=== PATIENT | male | born 1945 | race Caucasian/White ===

== ENCOUNTER 2018-06-07 09:51 | Emergency (ER) | payer MEDICARE ==
[~2018-06-07] VITALS: Ht 182.9 cm; Wt 95.2 kg
[~2018-06-07 09:51] MED LIST: ASPI81EC; Apple Cider Vi500 MG PO; CENTRUM SILVER1 EAC1 PO; CLOP75 PO; FISH1000 PO; GABA100 PO; MAGNESIUM100 MG PO; PARO10 PO; PRED20 PO; Saw Palmetto450 MG PO
[2018-06-07 11:09] LABS: BASOPHILS ABSOLUTE AUTO 0.03 K/mm3 (0.00-0.23); BASOPHILS PERCENT AUTO 0 % (0-2); EOSINOPHILS ABSOLUTE AUTO 0.08 K/mm3 (0.00-0.68); EOSINOPHILS PERCENT AUTO 1 % (0-6); Hematocrit 42.3 % (37.0-53.0); Hemoglobin 13.5 g/dL (13.5-17.5); IMMATURE GRAN ABSOLUTE AUTO 0.03 K/mm3 (0.00-0.10); IMMATURE GRAN PERCENT AUTO 0 % (0-1); LYMPHOCYTES ABSOLUTE AUTO 1.12 K/mm3 (0.84-5.20); LYMPHOCYTES PERCENT AUTO 9 % (21-46); MONOCYTES ABSOLUTE AUTO 1.13 K/mm3 (0.16-1.47); MONOCYTES PERCENT AUTO 9 % (4-13); Mean Corpuscular HGB 28.1 pg (26.0-34.0); Mean Corpuscular HGB Conc 31.9 g/dL (31.5-36.5); Mean Corpuscular Volume 88 fL (80-100); Mean Platelet Volume 9.7 fL (9.1-12.4); NEUTROPHILS PERCENT AUTO 81 % (41-73); Platelet Count 259 K/mm3 (150-400); RDW Coefficient Variation 13.1 % (11.7-14.2); RDW Standard Deviation 41.8 fL (35.1-46.3); White Blood Cell Count 12.39 K/mm3 (4.00-11.30)
[2018-06-07 11:26] LABS: Alanine Aminotransfer (ALT/SGP 35 U/L (12-78); Albumin, Blood 3.6 g/dL (3.4-5.0); Alk Phos 84 U/L (50-136); Anion Gap 8 mmol/L (6-16); Aspartate Aminotrans (AST/SGOT 18 U/L (12-37); Bilirubin, Total 0.6 mg/dL (0.1-1.0); Blood Urea Nitrogen 11 mg/dL (8-24); Bun/Creatinine Ratio 14.4 (12.0-20.0); CO2, Blood 26 mmol/L (21-32); Calcium, Blood 8.4 mg/dL (8.5-10.1); Chloride, Blood 104 mmol/L (98-108); Creatinine, Blood 0.77 mg/dL (0.60-1.20); Globulin, Blood 3.7 g/dL (2.2-4.0); Glomerular Filtration Rate >60 (60-); Glucose, Blood 119 mg/dL (70-99); Potassium, Blood 4.1 mmol/L (3.5-5.5); Sodium, Blood 138 mmol/L (136-145); Total Protein, Blood 7.3 g/dL (6.4-8.2); Troponin I <0.015 ng/mL (0.000-0.040)
[2018-06-07] MEDS ORDERED: SUCR1 PO (12:31)
[2018-06-07] MEDS ORDERED: Pepcid40 MG PO (12:31)
== END 2018-06-07 12:55 | disposition home or self-care (01) ==
LOC: ER 09:51
PROVIDERS: Emergency Medicine
DX: K20.9 Esophagitis, unspecified (principal); R68.84 Jaw pain; R07.9 Chest pain, unspecified; Z91.048 Other nonmedicinal substance allergy status; Z88.8 Allergy status to other drugs, medicaments and biological substances; Z79.899 Other long term (current) drug therapy; Z79.82 Long term (current) use of aspirin; F17.200 Nicotine dependence, unspecified, uncomplicated
CPT/HCPCS: 36415; 80053; 84484; 85025; 93005; 93010; 96374; 99285-25

== ENCOUNTER 2019-02-14 14:06 | Inpatient (IN) | payer MEDICARE ==
[~2019-02-14] VITALS: Ht 182.9 cm; Wt 99.1 kg
[~2019-02-14 14:06] MED LIST changes: +ASPI81CH; -ASPI81EC; +Pepcid40 MG PO; +SUCR1 PO
[2019-02-14 15:21] LABS: BASOPHILS ABSOLUTE AUTO 0.04 K/mm3 (0.00-0.23); BASOPHILS PERCENT AUTO 0 % (0-2); EOSINOPHILS ABSOLUTE AUTO 0.16 K/mm3 (0.00-0.68); EOSINOPHILS PERCENT AUTO 2 % (0-6); Hemoglobin 16.4 g/dL (13.5-17.5); IMMATURE GRAN ABSOLUTE AUTO 0.01 K/mm3 (0.00-0.10); IMMATURE GRAN PERCENT AUTO 0 % (0-1); LYMPHOCYTES ABSOLUTE AUTO 1.66 K/mm3 (0.84-5.20); LYMPHOCYTES PERCENT AUTO 18 % (21-46); MONOCYTES ABSOLUTE AUTO 0.84 K/mm3 (0.16-1.47); MONOCYTES PERCENT AUTO 9 % (4-13); Mean Corpuscular HGB 30.1 pg (26.0-34.0); Mean Corpuscular HGB Conc 33.5 g/dL (31.5-36.5); Mean Corpuscular Volume 90 fL (80-100); NEUTROPHILS ABSOLUTE AUTO 6.62 K/mm3 (1.96-9.15); NEUTROPHILS PERCENT AUTO 71 % (41-73); Platelet Count 266 K/mm3 (150-400); RDW Coefficient Variation 12.7 % (11.7-14.2); RDW Standard Deviation 41.8 fL (35.1-46.3); Red Blood Cell Count 5.45 M/mm3 (4.30-5.90); White Blood Cell Count 9.33 K/mm3 (4.00-11.30)
[2019-02-14 15:43] LABS: Alanine Aminotransfer (ALT/SGP 30 U/L (12-78); Albumin, Blood 3.7 g/dL (3.4-5.0); Alk Phos 73 U/L (50-136); Anion Gap 2 mmol/L (6-16); Aspartate Aminotrans (AST/SGOT 48 U/L (12-37); Bilirubin, Total 0.6 mg/dL (0.1-1.0); Blood Urea Nitrogen 15 mg/dL (8-24); Bun/Creatinine Ratio 17.8 (12.0-20.0); CO2, Blood 27 mmol/L (21-32); Calcium, Blood 8.9 mg/dL (8.5-10.1); Chloride, Blood 108 mmol/L (98-108); Creatinine, Blood 0.85 mg/dL (0.60-1.20); Globulin, Blood 3.8 g/dL (2.2-4.0); Glomerular Filtration Rate >60 (60-); Glucose, Blood 116 mg/dL (70-99); Potassium, Blood 4.6 mmol/L (3.5-5.5); Sodium, Blood 137 mmol/L (136-145); Total Protein, Blood 7.5 g/dL (6.4-8.2)
[2019-02-14 19:54] LABS: Source, Urine Clean Catch
[2019-02-14 20:03] LABS: Bilirubin, Urine Neg (Neg); Blood, Urine Neg (Neg); Glucose Qualitative, Urine Neg (Neg); Ketones, Urine 2+ (Neg); Leukocyte Esterase, Urine 1+ (Neg); Nitrite, Urine Neg (Neg); Protein, Urine 2+ (Neg); Specific Gravity, Urine 1.015 (1.003-1.022); Urobilinogen, Urine 1+ (Normal)
[2019-02-14 20:12] LABS: Appearance, Urine Clear (Clear); Color, Urine Yellow (P-Yellow)
[2019-02-14 20:15] LABS: International Normalized Ratio 0.97; Prothrombin Time Results 10.3 Sec (9.7-11.5)
[2019-02-14 20:16] LABS: Bacteria Rare /hpf; Mucus Light (0-Heavy); Red Blood Cells, Urine Not Seen /hpf (0-2); Squamous Epithelial Cells Not Seen /hpf (Few); White Blood Cells, Urine 0-2 /hpf (0-5)
[2019-02-14 20:36] LABS: Magnesium, Blood 2.3 mg/dL (1.6-2.4); Troponin I <0.015 ng/mL (0.000-0.040)
[2019-02-15 04:59] LABS: Hematocrit 48.8 % (37.0-53.0); Mean Corpuscular HGB Conc 32.8 g/dL (31.5-36.5); Mean Corpuscular Volume 88 fL (80-100); Platelet Count 238 K/mm3 (150-400); RDW Coefficient Variation 12.6 % (11.7-14.2); RDW Standard Deviation 41.1 fL (35.1-46.3); Red Blood Cell Count 5.52 M/mm3 (4.30-5.90); White Blood Cell Count 9.26 K/mm3 (4.00-11.30)
[2019-02-15 05:31] LABS: Anion Gap 5 mmol/L (6-16); Blood Urea Nitrogen 14 mg/dL (8-24); Bun/Creatinine Ratio 14.7 (12.0-20.0); CHOL/HDL RATIO 5.5; CO2, Blood 29 mmol/L (21-32); Calcium, Blood 8.5 mg/dL (8.5-10.1); Chloride, Blood 106 mmol/L (98-108); Cholesterol 215 mg/dL (50-200); Creatinine, Blood 0.95 mg/dL (0.60-1.20); Glomerular Filtration Rate >60 (60-); Glucose, Blood 125 mg/dL (70-99); HDL Cholesterol 39 mg/dL (>39); LDL/HDL RATIO 3.9; Low Density Lipoprotein Chol 150 mg/dL (0-110); Magnesium, Blood 2.1 mg/dL (1.6-2.4); Potassium, Blood 3.8 mmol/L (3.5-5.5); Sodium, Blood 140 mmol/L (136-145); Triglycerides 128 mg/dL (30-160); Very Low Density Lipoprot Chol 25 mg/dL (6-32)
[2019-02-19] MEDS ORDERED: ATOR40TA (10:20)
[2019-02-19] MEDS ORDERED: Prinivil10 MG PO (10:20)
== END 2019-02-19 10:47 | disposition home or self-care (01) | DRG 66 ==
LOC: ER 14:06 → MEDS 22:12
PROVIDERS: Emergency Medicine; Nurse Practitioner Acute Care; Physician Assistant; ADMIT Internal Medicine
DX: I63.9 Cerebral infarction, unspecified (principal); I10 Essential (primary) hypertension; I73.9 Peripheral vascular disease, unspecified; G47.33 Obstructive sleep apnea (adult) (pediatric); F17.210 Nicotine dependence, cigarettes, uncomplicated; K21.9 Gastro-esophageal reflux disease without esophagitis; R47.01 Aphasia; R47.81 Slurred speech; R29.810 Facial weakness; Z79.02 Long term (current) use of antithrombotics/antiplatelets; Z79.82 Long term (current) use of aspirin; Z79.899 Other long term (current) drug therapy
CPT/HCPCS: 36415; 70450; 70551; 80048; 80053; 80061; 81001; 82947; 83735; 84443; 84484; 85025; 85027; 85610; 87086; 92523; 92610; 93005; 93010; 93306; 93880; 94762; 97110; 97112; 97116; 97162; 97166; 97530; 97535; 99285-25; J1650; J7030

== ENCOUNTER 2020-07-13 14:29 | Emergency (ER) | payer MEDICARE ==
[~2020-07-13] VITALS: Ht 182.9 cm; Wt 56.7 kg
[~2020-07-13 14:29] MED LIST changes: +ATOR40TA; +Apple Cider Vi300 MG PO; -Apple Cider Vi500 MG PO; +Prinivil10 MG PO
[2020-07-13 15:31] LABS: BASOPHILS ABSOLUTE AUTO 0.03 K/mm3 (0.00-0.23); BASOPHILS PERCENT AUTO 0 % (0-2); EOSINOPHILS ABSOLUTE AUTO 0.16 K/mm3 (0.00-0.68); EOSINOPHILS PERCENT AUTO 2 % (0-6); Hematocrit 32.7 % (37.0-53.0); Hemoglobin 10.4 g/dL (13.5-17.5); IMMATURE GRAN ABSOLUTE AUTO 0.02 K/mm3 (0.00-0.10); IMMATURE GRAN PERCENT AUTO 0 % (0-1); LYMPHOCYTES ABSOLUTE AUTO 1.47 K/mm3 (0.84-5.20); LYMPHOCYTES PERCENT AUTO 21 % (21-46); MONOCYTES ABSOLUTE AUTO 0.65 K/mm3 (0.16-1.47); MONOCYTES PERCENT AUTO 9 % (4-13); Mean Corpuscular HGB 28.7 pg (26.0-34.0); Mean Corpuscular HGB Conc 31.8 g/dL (31.5-36.5); Mean Corpuscular Volume 90 fL (80-100); Mean Platelet Volume 9.7 fL (9.1-12.4); NEUTROPHILS ABSOLUTE AUTO 4.79 K/mm3 (1.96-9.15); NEUTROPHILS PERCENT AUTO 67 % (41-73); Platelet Count 272 K/mm3 (150-400); RDW Coefficient Variation 12.8 % (11.7-14.2); RDW Standard Deviation 42.3 fL (35.1-46.3); Red Blood Cell Count 3.62 M/mm3 (4.30-5.90); White Blood Cell Count 7.12 K/mm3 (4.00-11.30)
[2020-07-13 15:57] LABS: Alanine Aminotransfer (ALT/SGP 17 U/L (12-78); Albumin, Blood 3.6 g/dL (3.4-5.0); Alk Phos 106 U/L (50-136); Anion Gap 6 mmol/L (6-16); Aspartate Aminotrans (AST/SGOT 15 U/L (12-37); Bilirubin, Total 0.4 mg/dL (0.1-1.0); Blood Urea Nitrogen 20 mg/dL (8-24); Bun/Creatinine Ratio 23.5 (12.0-20.0); CO2, Blood 28 mmol/L (21-32); Calcium, Blood 9.1 mg/dL (8.5-10.1); Chloride, Blood 106 mmol/L (98-108); Creatinine, Blood 0.85 mg/dL (0.60-1.20); Globulin, Blood 3.7 g/dL (2.2-4.0); Glomerular Filtration Rate >60 (60-); Glucose, Blood 160 mg/dL (70-99); Sodium, Blood 140 mmol/L (136-145); Total Protein, Blood 7.3 g/dL (6.4-8.2)
[2020-07-13] MEDS ORDERED: CRUTCH2 XX ×2 (17:25→17:27)
== END 2020-07-13 17:50 | disposition home or self-care (01) ==
LOC: ER 14:29
PROVIDERS: Physician Assistant
DX: S82.62XA Displaced fracture of lateral malleolus of left fibula, initial encounter for closed fracture (principal); K21.9 Gastro-esophageal reflux disease without esophagitis; F17.200 Nicotine dependence, unspecified, uncomplicated; M79.662 Pain in left lower leg; Z91.09 Other allergy status, other than to drugs and biological substances; Z91.041 Radiographic dye allergy status; Z79.02 Long term (current) use of antithrombotics/antiplatelets; Z79.899 Other long term (current) drug therapy; W00.0XXA Fall on same level due to ice and snow, initial encounter
CPT/HCPCS: 29505; 73610; 80053; 85025; 93971; 99284-25

== ENCOUNTER 2020-07-16 20:39 | Day surgery (SDC) | payer MEDICARE ==
[~2020-07-16 20:39] MED LIST changes: +CRUTCH2 XX
[2020-07-17] MEDS ORDERED: LISI20 PO (13:41)
[2020-07-17] MEDS ORDERED: NAPR220 PO (13:41)
[2020-07-17] MEDS ORDERED: CARBLEV25 PO (13:42)
[2020-07-17] MEDS ORDERED: XARELTO20 MG PO (13:42)
[2020-09-29] MEDS ORDERED: ESCI20 PO (22:22)
[2020-09-29] MEDS ORDERED: CARBIDOPA-LEVO1 EA17 PO (22:22)
[2020-10-05] MEDS ORDERED: VISBIOME 112.51 EACH PO (12:45)
[2020-10-05] MEDS ORDERED: ACET325 PO (12:45)
[2020-10-05] MEDS ORDERED: DOXY100 PO (12:46)
[2020-10-05] MEDS ORDERED: AMOCLA875 PO (12:46)
[2020-11-24] MEDS ORDERED: Apple Cider Vi300 MG PO (16:34)
[2020-11-24] MEDS ORDERED: CARBLEV25 PO (16:35)
[2020-11-24] MEDS ORDERED: THERA-D2000 UNIT PO (16:35)
[2020-11-24] MEDS ORDERED: MELATONIN5 M1 PO (16:35)
[2020-11-24] MEDS ORDERED: PYRIDOXINE HCL PO (16:36)
[2020-11-24] MEDS ORDERED: METO50ER PO (16:36)
[2020-11-24] MEDS ORDERED: B-1100 M1 PO (16:37)
== END 2021-02-02 22:46 | disposition home or self-care (01) ==
LOC: MHTC 20:39
DX: I70.213 Atherosclerosis of native arteries of extremities with intermittent claudication, bilateral legs (principal)
CPT/HCPCS: J1100; J2250; J2405; J2704; J3010

== ENCOUNTER 2020-07-17 13:15 | Day surgery (SDC) | payer MEDICARE ==
[~2020-07-17] VITALS: Ht 182.9 cm; Wt 100.8 kg
[2020-07-17] MEDS ORDERED: NAPR220 PO (13:41)
[2020-07-17] MEDS ORDERED: LISI20 PO (13:41)
[2020-07-17] MEDS ORDERED: XARELTO20 MG PO (13:42)
[2020-07-17] MEDS ORDERED: CARBLEV25 PO (13:42)
== END 2020-07-17 16:08 | disposition home or self-care (01) ==
LOC: ORSCSDS 13:15
PROVIDERS: Podiatrist Foot & Ankle Surgery
PROC: 0QSK04Z Reposition Left Fibula with Internal Fixation Device, Open Approach (ICD-10-PCS; principal; 2020-07-17 14:30)
DX: S82.62XA Displaced fracture of lateral malleolus of left fibula, initial encounter for closed fracture (principal); I10 Essential (primary) hypertension; Z86.73 Personal history of transient ischemic attack (TIA), and cerebral infarction without residual deficits; I73.9 Peripheral vascular disease, unspecified; Z79.01 Long term (current) use of anticoagulants; Z79.82 Long term (current) use of aspirin; Z79.899 Other long term (current) drug therapy; F17.210 Nicotine dependence, cigarettes, uncomplicated
CPT/HCPCS: C1713; J0171; J0690; J1100; J2250; J2370; J2405; J2704; J3010

== ENCOUNTER 2020-09-18 00:39 | Day surgery (SDC) | payer MEDICARE ==
[~2020-09-18 00:39] MED LIST changes: -Apple Cider Vi300 MG PO; +Apple Cider Vi500 MG PO; +CARBLEV25 PO; +LISI20 PO; +NAPR220 PO; +XARELTO20 MG PO
== END 2020-09-18 22:56 | disposition home or self-care (01) ==
LOC: WOUND 00:39
DX: S82.62XD Displaced fracture of lateral malleolus of left fibula, subsequent encounter for closed fracture with routine healing (principal); T81.89XA Other complications of procedures, not elsewhere classified, initial encounter; X58.XXXD Exposure to other specified factors, subsequent encounter
CPT/HCPCS: A9270; G0463

== ENCOUNTER 2020-09-25 00:48 | Day surgery (SDC) | payer MEDICARE | END 2020-09-25 23:09 | disposition home or self-care (01) | LOC: WOUND 00:48 | DX: L97.322 Non-pressure chronic ulcer of left ankle with fat layer exposed (principal); S82.62XD Displaced fracture of lateral malleolus of left fibula, subsequent encounter for closed fracture with routine healing | CPT/HCPCS: A9270 ==

== ENCOUNTER 2020-10-28 08:23 | Day surgery (SDC) | payer MEDICARE ==
[~2020-10-28] VITALS: Ht 182.9 cm; Wt 100.0 kg
[~2020-10-28 08:23] MED LIST changes: +ACET325 PO; +AMOCLA875 PO; +Apple Cider Vi300 MG PO; -Apple Cider Vi500 MG PO; +CARBIDOPA-LEVO1 EA17 PO; +DOXY100 PO; +ESCI20 PO; +VISBIOME 112.51 EACH PO
--- NOTE | 2020-10-28 16:03 | NUR ---
PT DC'D BY MATT, DAUGHTER DRIVING PT HOME
== END 2020-10-28 16:45 | disposition home or self-care (01) ==
LOC: MHTC 08:23
DX: I70.213 Atherosclerosis of native arteries of extremities with intermittent claudication, bilateral legs (principal); Z91.041 Radiographic dye allergy status; Z91.048 Other nonmedicinal substance allergy status
CPT/HCPCS: 37221; 37224; 75625; 75716; 75774; 76937; 99152; 99153; C1769; C1876; C1887; C1894; C2623; J0360; J1200; J1644; J1720; J2250; J3010; J7030; J7050; Q9967

== ENCOUNTER 2020-11-25 07:00 | Day surgery (SDC) | payer MEDICARE ==
[~2020-11-25] VITALS: Ht 182.9 cm; Wt 104.3 kg
[~2020-11-25 07:00] MED LIST changes: +B-1100 M1 PO; +MELATONIN5 M1 PO; +METO50ER PO; +PYRIDOXINE HCL PO; +THERA-D2000 UNIT PO
--- NOTE | 2020-11-25 12:30 | NUR ---
PT AMB TO BATHROOM /C SBA. TOLERATED WELL. -BLEEDING OR SWELLING L GROIN AREA.
--- NOTE | 2020-11-25 13:05 | NUR ---
PT VERBALIZED UNDERSTANDING OF WRITTEN AND VERBAL D/C INST. IV REMOVED. PT TAKEN OUT OF THE HRT CENTER VIA W/C.
== END 2020-11-25 13:07 | disposition home or self-care (01) ==
LOC: MHTC 07:00
DX: I70.213 Atherosclerosis of native arteries of extremities with intermittent claudication, bilateral legs (principal); I48.91 Unspecified atrial fibrillation; I10 Essential (primary) hypertension; Z91.041 Radiographic dye allergy status
CPT/HCPCS: 37221; 37224; 75716; 75774; 76937; 85347; 99152; 99153; C1725; C1769; C1874; C1887; C1894; C2623; J1200; J1644; J1720; J2250; J3010; J7030; J7050; Q9967

== ENCOUNTER → 2020-12-01 | Outpatient (CLI) | payer MEDICARE | LOC: LAB 16:48 → LAB SHORT 16:48 | DX: I73.9 Peripheral vascular disease, unspecified (principal); L03.116 Cellulitis of left lower limb; S82.62XD Displaced fracture of lateral malleolus of left fibula, subsequent encounter for closed fracture with routine healing; T81.89XD Other complications of procedures, not elsewhere classified, subsequent encounter; Z91.041 Radiographic dye allergy status; Z91.048 Other nonmedicinal substance allergy status | CPT/HCPCS: 87070; 87077; 87147; 87205 ==

== ENCOUNTER → 2020-12-18 | Outpatient (CLI) | payer MEDICARE ==
[2020-12-19 12:46] LABS: Stool Occult Bld Immuno 1 Positive (NEGATIVE)
== END | disposition home or self-care (01) ==
LOC: LAB 15:26 → LAB SHORT 15:26
PROVIDERS: Student in an Organized Health Care Education/Training Program
DX: D64.9 Anemia, unspecified (principal)
CPT/HCPCS: 82274

== ENCOUNTER 2021-01-14 13:16 | Day surgery (SDC) | payer MEDICARE ==
[~2021-01-14] VITALS: Ht 182.9 cm; Wt 105.7 kg
--- NOTE | 2021-01-14 14:02 | NUR ---
01/14/21 1401 Umair Maria PATIENT HAS WOUND VAC IN PLACE WITH BAG ON BED. DENIES ANY COMPLICATIONS OR NEEDS AT PRESENT WITH IT.
--- NOTE | 2021-01-14 15:27 | NUR ---
01/14/21 1527 Yoly King OPEN WOUND PRESENT TO LATERAL LEFT ANKLE. WOUND VAC PRESENT AND DRESSING REMOVED BY SURGEON IN THE OR. WOUND ODIFEROUS.
== END 2021-01-14 17:11 | disposition home or self-care (01) ==
LOC: ORSCSDS 13:16
PROVIDERS: Orthopaedic Surgery
PROC: 0QPK04Z Removal of Internal Fixation Device from Left Fibula, Open Approach (ICD-10-PCS; principal; 2021-01-14 14:30)
PROC: 0QBK0ZZ Excision of Left Fibula, Open Approach (ICD-10-PCS; principal; 2021-01-14 14:30)
DX: S81.802A Unspecified open wound, left lower leg, initial encounter (principal); I10 Essential (primary) hypertension; I48.91 Unspecified atrial fibrillation; Z79.01 Long term (current) use of anticoagulants; Z86.73 Personal history of transient ischemic attack (TIA), and cerebral infarction without residual deficits; Z79.899 Other long term (current) drug therapy
CPT/HCPCS: 73610; 87070; 87075; 87076; 87077; 87185; 87205; J0690; J2250; J3010

== ENCOUNTER 2021-01-25 02:59 | Day surgery (SDC) | payer MEDICARE | END 2021-01-25 12:00 | disposition home or self-care (01) | LOC: WOUND 02:59 | DX: S82.62XD Displaced fracture of lateral malleolus of left fibula, subsequent encounter for closed fracture with routine healing (principal); I87.2 Venous insufficiency (chronic) (peripheral); I73.9 Peripheral vascular disease, unspecified; G20 Parkinson's disease; I69.398 Other sequelae of cerebral infarction; R53.1 Weakness; Z91.041 Radiographic dye allergy status; Z87.891 Personal history of nicotine dependence | CPT/HCPCS: A9270; G0463 ==

== ENCOUNTER 2021-02-01 02:14 | Day surgery (SDC) | payer MEDICARE | END 2021-02-01 23:43 | disposition home or self-care (01) | LOC: WOUND 02:14 | DX: T81.89XA Other complications of procedures, not elsewhere classified, initial encounter (principal); I87.2 Venous insufficiency (chronic) (peripheral); I73.9 Peripheral vascular disease, unspecified; G20 Parkinson's disease; Y83.8 Other surgical procedures as the cause of abnormal reaction of the patient, or of later complication, without mention of misadventure at the time of the procedure; Z87.81 Personal history of (healed) traumatic fracture | CPT/HCPCS: A9270 ==

== ENCOUNTER 2021-02-08 08:00 | Day surgery (SDC) | payer MEDICARE | END 2021-02-08 23:59 | disposition home or self-care (01) | LOC: WOUND 08:00 | DX: T81.89XA Other complications of procedures, not elsewhere classified, initial encounter (principal); I87.2 Venous insufficiency (chronic) (peripheral); I73.9 Peripheral vascular disease, unspecified; G20 Parkinson's disease; I69.398 Other sequelae of cerebral infarction; Y83.8 Other surgical procedures as the cause of abnormal reaction of the patient, or of later complication, without mention of misadventure at the time of the procedure; Z87.81 Personal history of (healed) traumatic fracture ==

== ENCOUNTER 2021-02-19 01:10 | Day surgery (SDC) | payer MEDICARE | END 2021-02-19 23:08 | disposition home or self-care (01) | LOC: WOUND 01:10 | DX: L97.822 Non-pressure chronic ulcer of other part of left lower leg with fat layer exposed (principal); S82.62XD Displaced fracture of lateral malleolus of left fibula, subsequent encounter for closed fracture with routine healing; I73.9 Peripheral vascular disease, unspecified; I87.2 Venous insufficiency (chronic) (peripheral); I69.359 Hemiplegia and hemiparesis following cerebral infarction affecting unspecified side; G20 Parkinson's disease; Z91.041 Radiographic dye allergy status | CPT/HCPCS: A9270; G0463 ==

== ENCOUNTER 2021-06-23 10:19 | Day surgery (SDC) | payer MEDICARE ==
[~2021-06-23] VITALS: Ht 182.9 cm; Wt 102.6 kg
--- NOTE | 2021-06-23 12:58 | NUR ---
06/23/21 1258 MEDARDO DELACRUZ History, Chart, Medications and Allergies reviewed before start of procedure. 3-LEAD EKG REVIEWED WITH PHYSICIAN PRIOR TO START OF PROCEDURE. O2 VIA POM INTACT THROUGHOUT SEDATION/PROCEDURE. MONITOR INTACT WITH CONTINUOUS PULSE OXIMETRY AND INTERMITTENT BP. GENREAL WITH DR. SAAVEDRA.
--- NOTE | 2021-06-23 13:46 | NUR ---
RECEIVED REPORTS FROM MEDARDO DELACURZ RN. PT REQUESTED AND TOLERATING PO FLUIDS.
--- NOTE | 2021-06-23 13:51 | NUR ---
PT ALERT AND ORIENTED, TALKING WITH DOCTOR AT BEDSIDE. REPOSITIONING SELF TO SIT UPRIGHT, TOLERATING PO SOLIDS AND FLUIDS. REQUESTING TO "BE RELEASED SOON".
--- NOTE | 2021-06-23 14:12 | NUR ---
Ambulatory in Day Surgery. Discharge instructions reviewed with patient. Patient verbalizes understanding. Copy given to patient to take home. Patient States Post-Procedure ride home has been arranged. Discharged via wheelchair to private car for ride home. ALL BELONGINGS RETURNED TO PATIENT.
== END 2021-06-23 22:38 | disposition home or self-care (01) ==
LOC: ORSCMMR 10:19 → ORD 11:45 → ORSCMMR 11:45
PROVIDERS: Surgery
PROC: 0DBN8ZX Excision of Sigmoid Colon, Via Natural or Artificial Opening Endoscopic, Diagnostic (ICD-10-PCS; principal; 2021-06-23 11:45)
PROC: 0DB78ZX Excision of Stomach, Pylorus, Via Natural or Artificial Opening Endoscopic, Diagnostic (ICD-10-PCS; principal; 2021-06-23 11:45)
DX: R19.5 Other fecal abnormalities (principal); D12.5 Benign neoplasm of sigmoid colon; D50.9 Iron deficiency anemia, unspecified; K29.70 Gastritis, unspecified, without bleeding; B96.81 Helicobacter pylori [H. pylori] as the cause of diseases classified elsewhere; K57.30 Diverticulosis of large intestine without perforation or abscess without bleeding; G47.33 Obstructive sleep apnea (adult) (pediatric); E78.5 Hyperlipidemia, unspecified; G20 Parkinson's disease; I10 Essential (primary) hypertension; Z87.891 Personal history of nicotine dependence; Z79.899 Other long term (current) drug therapy; Z79.01 Long term (current) use of anticoagulants
CPT/HCPCS: 88305; 88341; 88342; J2370; J2704; J3010; J7120

== ENCOUNTER 2021-10-04 17:08 | Emergency (ER) | payer MEDICARE ==
[~2021-10-04] VITALS: Ht 182.9 cm; Wt 106.6 kg
[2021-10-04] MEDS ORDERED: LOSA50 PO (19:13)
[2021-10-04] MEDS ORDERED: TERB250 PO (19:14)
[2021-10-04] MEDS ORDERED: DOXY100 PO (19:44)
== END 2021-10-04 20:23 | disposition home or self-care (01) ==
LOC: ER 17:08
DX: L03.115 Cellulitis of right lower limb (principal); G20 Parkinson's disease; I10 Essential (primary) hypertension; Z91.041 Radiographic dye allergy status; Z91.09 Other allergy status, other than to drugs and biological substances; Z87.891 Personal history of nicotine dependence
CPT/HCPCS: 93926; 93971; A9270

== ENCOUNTER → 2021-12-22 | Outpatient (CLI) | payer MEDICARE ==
[~2021-12-22] MED LIST changes: +LOSA50 PO; +TERB250 PO
[2021-12-22 13:01] LABS: Source, Urine Clean Catch
[2021-12-22 13:21] LABS: Bilirubin, Urine Neg (Neg); Blood, Urine Neg (Neg); Color, Urine Yellow (P-Yellow); Glucose Qualitative, Urine 3+ (Neg); Ketones, Urine Neg (Neg); Leukocyte Esterase, Urine Neg (Neg); Nitrite, Urine Neg (Neg); Protein, Urine 2+ (Neg); Specific Gravity, Urine 1.015 (1.003-1.022); Urobilinogen, Urine NORM (Normal)
[2021-12-22 13:46] LABS: Appearance, Urine Hazy (Clear)
[2021-12-22 13:47] LABS: Bacteria Mod /hpf; Mucus Light (0-Heavy); Red Blood Cells, Urine 0-2 /hpf (0-2); Squamous Epithelial Cells Rare /hpf (Few); White Blood Cells, Urine 0-2 /hpf (0-5)
== END | disposition home or self-care (01) ==
LOC: LAB SHORT 12:00 → LAB 12:00
PROVIDERS: Student in an Organized Health Care Education/Training Program
DX: R82.998 Other abnormal findings in urine (principal)
CPT/HCPCS: 81001; 87086

== ENCOUNTER 2021-12-27 07:16 | Day surgery (SDC) | payer MEDICARE | END 2021-12-27 23:42 | disposition home or self-care (01) | LOC: WOUND 07:16 | DX: L97.822 Non-pressure chronic ulcer of other part of left lower leg with fat layer exposed (principal); T81.89XA Other complications of procedures, not elsewhere classified, initial encounter; G20 Parkinson's disease; Z86.73 Personal history of transient ischemic attack (TIA), and cerebral infarction without residual deficits; Z87.891 Personal history of nicotine dependence; Z91.041 Radiographic dye allergy status; Z91.018 Allergy to other foods; Z91.048 Other nonmedicinal substance allergy status | CPT/HCPCS: A9270; G0463 ==

== ENCOUNTER 2021-12-30 01:41 | Day surgery (SDC) | payer MEDICARE | END 2021-12-31 23:39 | disposition home or self-care (01) | LOC: WOUND 01:41 | DX: L97.922 Non-pressure chronic ulcer of unspecified part of left lower leg with fat layer exposed (principal); R60.0 Localized edema; I87.2 Venous insufficiency (chronic) (peripheral); I73.9 Peripheral vascular disease, unspecified; I10 Essential (primary) hypertension; I48.0 Paroxysmal atrial fibrillation ==

== ENCOUNTER 2022-01-03 05:40 | Day surgery (SDC) | payer MEDICARE | END 2022-01-03 23:28 | disposition home or self-care (01) | LOC: WOUND 05:40 | DX: T81.41XA Infection following a procedure, superficial incisional surgical site, initial encounter (principal); R60.0 Localized edema; L97.822 Non-pressure chronic ulcer of other part of left lower leg with fat layer exposed; I48.0 Paroxysmal atrial fibrillation; I10 Essential (primary) hypertension; I87.2 Venous insufficiency (chronic) (peripheral); I73.9 Peripheral vascular disease, unspecified; Y83.8 Other surgical procedures as the cause of abnormal reaction of the patient, or of later complication, without mention of misadventure at the time of the procedure | CPT/HCPCS: A9270; G0463 ==

== ENCOUNTER 2022-01-10 02:00 | Day surgery (SDC) | payer MEDICARE | END 2022-01-10 23:14 | disposition home or self-care (01) | LOC: WOUND 02:00 | DX: T81.89XA Other complications of procedures, not elsewhere classified, initial encounter (principal); L97.222 Non-pressure chronic ulcer of left calf with fat layer exposed; R60.0 Localized edema; I48.0 Paroxysmal atrial fibrillation; I10 Essential (primary) hypertension; I87.2 Venous insufficiency (chronic) (peripheral); I73.9 Peripheral vascular disease, unspecified | CPT/HCPCS: A9270 ==

== ENCOUNTER 2022-01-17 01:42 | Day surgery (SDC) | payer MEDICARE | END 2022-01-17 23:46 | disposition home or self-care (01) | LOC: WOUND 01:42 | DX: S91.002A Unspecified open wound, left ankle, initial encounter (principal); I48.0 Paroxysmal atrial fibrillation; I10 Essential (primary) hypertension; I87.2 Venous insufficiency (chronic) (peripheral); I73.9 Peripheral vascular disease, unspecified; G20 Parkinson's disease; R60.0 Localized edema; X58.XXXA Exposure to other specified factors, initial encounter; Z95.828 Presence of other vascular implants and grafts | CPT/HCPCS: A9270 ==

== ENCOUNTER 2022-01-24 03:50 | Day surgery (SDC) | payer MEDICARE | END 2022-01-24 23:00 | disposition home or self-care (01) | LOC: WOUND 03:50 | DX: T81.89XA Other complications of procedures, not elsewhere classified, initial encounter (principal); L97.322 Non-pressure chronic ulcer of left ankle with fat layer exposed; Y83.8 Other surgical procedures as the cause of abnormal reaction of the patient, or of later complication, without mention of misadventure at the time of the procedure; L02.416 Cutaneous abscess of left lower limb; S91.114A Laceration without foreign body of right lesser toe(s) without damage to nail, initial encounter; X58.XXXA Exposure to other specified factors, initial encounter; R60.0 Localized edema; I48.0 Paroxysmal atrial fibrillation; I10 Essential (primary) hypertension; I87.2 Venous insufficiency (chronic) (peripheral); I73.9 Peripheral vascular disease, unspecified; G20 Parkinson's disease | CPT/HCPCS: A9270 ==

== ENCOUNTER 2022-01-31 00:23 | Day surgery (SDC) | payer MEDICARE | END 2022-02-01 00:35 | disposition home or self-care (01) | LOC: WOUND 00:23 | PROC: 0JBR0ZZ Excision of Left Foot Subcutaneous Tissue and Fascia, Open Approach (ICD-10-PCS; principal; 2022-01-31) | DX: S91.002A Unspecified open wound, left ankle, initial encounter (principal); S81.802A Unspecified open wound, left lower leg, initial encounter; S91.114A Laceration without foreign body of right lesser toe(s) without damage to nail, initial encounter; L97.822 Non-pressure chronic ulcer of other part of left lower leg with fat layer exposed; I10 Essential (primary) hypertension; I87.2 Venous insufficiency (chronic) (peripheral); I73.9 Peripheral vascular disease, unspecified; I48.0 Paroxysmal atrial fibrillation | CPT/HCPCS: A9270; G0463 ==

== ENCOUNTER 2022-02-07 01:16 | Day surgery (SDC) | payer MEDICARE | END 2022-02-07 23:17 | disposition home or self-care (01) | LOC: WOUND 01:16 | DX: S91.002A Unspecified open wound, left ankle, initial encounter (principal); X58.XXXA Exposure to other specified factors, initial encounter; L97.822 Non-pressure chronic ulcer of other part of left lower leg with fat layer exposed; R60.0 Localized edema; I48.0 Paroxysmal atrial fibrillation; I10 Essential (primary) hypertension; I87.2 Venous insufficiency (chronic) (peripheral); G20 Parkinson's disease | CPT/HCPCS: A9270 ==

== ENCOUNTER 2022-02-16 06:29 | Day surgery (SDC) | payer MEDICARE | END 2022-02-16 23:30 | disposition home or self-care (01) | LOC: WOUND 06:29 | DX: S91.002A Unspecified open wound, left ankle, initial encounter (principal); X58.XXXA Exposure to other specified factors, initial encounter; R60.0 Localized edema; I48.0 Paroxysmal atrial fibrillation; I10 Essential (primary) hypertension; I87.2 Venous insufficiency (chronic) (peripheral) | CPT/HCPCS: A9270; Q4133 ==

== ENCOUNTER 2022-02-23 07:48 | Day surgery (SDC) | payer MEDICARE | END 2022-02-23 23:39 | disposition home or self-care (01) | LOC: WOUND 07:48 | DX: L97.822 Non-pressure chronic ulcer of other part of left lower leg with fat layer exposed (principal); I48.0 Paroxysmal atrial fibrillation; I10 Essential (primary) hypertension; I87.2 Venous insufficiency (chronic) (peripheral); I73.9 Peripheral vascular disease, unspecified; L03.116 Cellulitis of left lower limb; G20 Parkinson's disease; Z86.73 Personal history of transient ischemic attack (TIA), and cerebral infarction without residual deficits; S91.002A Unspecified open wound, left ankle, initial encounter | CPT/HCPCS: A9270; G0463; Q4133 ==

== ENCOUNTER 2022-03-16 01:54 | Day surgery (SDC) | payer MEDICARE | END 2022-03-16 23:38 | disposition home or self-care (01) | LOC: WOUND 01:54 | DX: T81.89XA Other complications of procedures, not elsewhere classified, initial encounter (principal); L97.922 Non-pressure chronic ulcer of unspecified part of left lower leg with fat layer exposed; R60.0 Localized edema; I48.0 Paroxysmal atrial fibrillation; I10 Essential (primary) hypertension; I87.2 Venous insufficiency (chronic) (peripheral); I73.9 Peripheral vascular disease, unspecified | CPT/HCPCS: A9270; Q4133 ==

== ENCOUNTER 2022-03-23 04:14 | Day surgery (SDC) | payer MEDICARE | END 2022-03-23 22:54 | disposition home or self-care (01) | LOC: WOUND 04:14 | DX: S91.002A Unspecified open wound, left ankle, initial encounter (principal); X58.XXXA Exposure to other specified factors, initial encounter; L97.822 Non-pressure chronic ulcer of other part of left lower leg with fat layer exposed; R60.0 Localized edema; I48.0 Paroxysmal atrial fibrillation; I10 Essential (primary) hypertension; I87.2 Venous insufficiency (chronic) (peripheral); I73.9 Peripheral vascular disease, unspecified | CPT/HCPCS: A9270; Q4133 ==

== ENCOUNTER 2022-03-30 02:28 | Day surgery (SDC) | payer MEDICARE | END 2022-03-30 22:58 | disposition home or self-care (01) | LOC: WOUND 02:28 | DX: S91.002A Unspecified open wound, left ankle, initial encounter (principal); X58.XXXA Exposure to other specified factors, initial encounter; L97.322 Non-pressure chronic ulcer of left ankle with fat layer exposed; R60.0 Localized edema; I48.0 Paroxysmal atrial fibrillation; I10 Essential (primary) hypertension; I73.9 Peripheral vascular disease, unspecified; I87.2 Venous insufficiency (chronic) (peripheral) | CPT/HCPCS: A9270; Q4133 ==

== ENCOUNTER 2022-04-06 02:09 | Day surgery (SDC) | payer MEDICARE | END 2022-04-06 22:51 | disposition home or self-care (01) | LOC: WOUND 02:09 | DX: L97.322 Non-pressure chronic ulcer of left ankle with fat layer exposed (principal); R60.0 Localized edema; I48.0 Paroxysmal atrial fibrillation; I10 Essential (primary) hypertension; I87.2 Venous insufficiency (chronic) (peripheral); I73.9 Peripheral vascular disease, unspecified; G20 Parkinson's disease; Z95.820 Peripheral vascular angioplasty status with implants and grafts; I69.359 Hemiplegia and hemiparesis following cerebral infarction affecting unspecified side; Z87.81 Personal history of (healed) traumatic fracture | CPT/HCPCS: A9270; Q4133 ==

== ENCOUNTER 2022-04-13 01:36 | Day surgery (SDC) | payer MEDICARE | END 2022-04-13 23:42 | disposition home or self-care (01) | LOC: WOUND 01:36 | DX: T81.89XA Other complications of procedures, not elsewhere classified, initial encounter (principal); G20 Parkinson's disease; R60.0 Localized edema; I48.0 Paroxysmal atrial fibrillation; I10 Essential (primary) hypertension; I87.2 Venous insufficiency (chronic) (peripheral) | CPT/HCPCS: A9270; Q4133 ==

== ENCOUNTER 2022-04-22 00:45 | Day surgery (SDC) | payer MEDICARE | END 2022-04-22 23:23 | disposition home or self-care (01) | LOC: WOUND 00:45 | DX: L97.322 Non-pressure chronic ulcer of left ankle with fat layer exposed (principal); R60.0 Localized edema; I48.0 Paroxysmal atrial fibrillation; I10 Essential (primary) hypertension; I87.2 Venous insufficiency (chronic) (peripheral); I73.9 Peripheral vascular disease, unspecified; G20 Parkinson's disease; I69.359 Hemiplegia and hemiparesis following cerebral infarction affecting unspecified side | CPT/HCPCS: A9270 ==

== ENCOUNTER 2022-04-29 00:37 | Day surgery (SDC) | payer MEDICARE | END 2022-04-29 22:50 | disposition home or self-care (01) | LOC: WOUND 00:37 | DX: T81.89XA Other complications of procedures, not elsewhere classified, initial encounter (principal); I48.0 Paroxysmal atrial fibrillation; I10 Essential (primary) hypertension; I87.2 Venous insufficiency (chronic) (peripheral); I73.9 Peripheral vascular disease, unspecified | CPT/HCPCS: 87070; 87077; 87147; 87186; 87205; A9270 ==

== ENCOUNTER 2022-05-04 01:52 | Day surgery (SDC) | payer MEDICARE | END 2022-05-04 23:12 | disposition home or self-care (01) | LOC: WOUND 01:52 | DX: L97.922 Non-pressure chronic ulcer of unspecified part of left lower leg with fat layer exposed (principal); R60.0 Localized edema; I48.0 Paroxysmal atrial fibrillation; I10 Essential (primary) hypertension; I87.2 Venous insufficiency (chronic) (peripheral); I73.9 Peripheral vascular disease, unspecified ==

== ENCOUNTER 2022-05-13 02:05 | Day surgery (SDC) | payer MEDICARE | END 2022-05-13 22:57 | disposition home or self-care (01) | LOC: WOUND 02:05 | DX: T81.89XA Other complications of procedures, not elsewhere classified, initial encounter (principal); L97.922 Non-pressure chronic ulcer of unspecified part of left lower leg with fat layer exposed; R60.0 Localized edema; I48.0 Paroxysmal atrial fibrillation; I10 Essential (primary) hypertension; I87.2 Venous insufficiency (chronic) (peripheral); I73.9 Peripheral vascular disease, unspecified ==

== ENCOUNTER 2022-05-20 00:35 | Day surgery (SDC) | payer MEDICARE | END 2022-05-20 23:09 | disposition home or self-care (01) | LOC: WOUND 00:35 | DX: S91.002A Unspecified open wound, left ankle, initial encounter (principal); L97.922 Non-pressure chronic ulcer of unspecified part of left lower leg with fat layer exposed; R60.0 Localized edema; I48.0 Paroxysmal atrial fibrillation; I10 Essential (primary) hypertension; I87.2 Venous insufficiency (chronic) (peripheral) | CPT/HCPCS: A9270 ==

== ENCOUNTER 2022-05-27 01:11 | Day surgery (SDC) | payer MEDICARE | END 2022-05-27 23:14 | disposition home or self-care (01) | LOC: WOUND 01:11 | DX: L97.922 Non-pressure chronic ulcer of unspecified part of left lower leg with fat layer exposed (principal); R60.0 Localized edema; I48.0 Paroxysmal atrial fibrillation; I10 Essential (primary) hypertension; I87.2 Venous insufficiency (chronic) (peripheral); I73.9 Peripheral vascular disease, unspecified ==

== ENCOUNTER 2022-06-03 01:26 | Day surgery (SDC) | payer MEDICARE | END 2022-06-04 23:34 | disposition home or self-care (01) | LOC: WOUND 01:26 | DX: T81.89XA Other complications of procedures, not elsewhere classified, initial encounter (principal); L08.9 Local infection of the skin and subcutaneous tissue, unspecified; L97.822 Non-pressure chronic ulcer of other part of left lower leg with fat layer exposed; I48.0 Paroxysmal atrial fibrillation; I87.2 Venous insufficiency (chronic) (peripheral); I10 Essential (primary) hypertension; I73.9 Peripheral vascular disease, unspecified | CPT/HCPCS: A9270 ==

== ENCOUNTER 2022-06-07 00:03 | Day surgery (SDC) | payer MEDICARE | END 2022-06-07 23:20 | disposition home or self-care (01) | LOC: WOUND 00:03 | DX: L97.922 Non-pressure chronic ulcer of unspecified part of left lower leg with fat layer exposed (principal); I10 Essential (primary) hypertension; R60.0 Localized edema; I48.0 Paroxysmal atrial fibrillation; I87.2 Venous insufficiency (chronic) (peripheral); I73.9 Peripheral vascular disease, unspecified ==

== ENCOUNTER 2022-06-10 00:17 | Day surgery (SDC) | payer MEDICARE | END 2022-06-10 23:31 | disposition home or self-care (01) | LOC: WOUND 00:17 | DX: L97.822 Non-pressure chronic ulcer of other part of left lower leg with fat layer exposed (principal); S91.002A Unspecified open wound, left ankle, initial encounter; L97.222 Non-pressure chronic ulcer of left calf with fat layer exposed; R60.0 Localized edema; I48.0 Paroxysmal atrial fibrillation; I10 Essential (primary) hypertension; I87.2 Venous insufficiency (chronic) (peripheral); I73.9 Peripheral vascular disease, unspecified | CPT/HCPCS: A9270 ==

== ENCOUNTER 2022-06-16 04:04 | Day surgery (SDC) | payer OTHER | END 2022-06-16 22:48 | disposition home or self-care (01) | LOC: WOUND 04:04 | DX: T81.89XA Other complications of procedures, not elsewhere classified, initial encounter (principal); L97.822 Non-pressure chronic ulcer of other part of left lower leg with fat layer exposed; I87.2 Venous insufficiency (chronic) (peripheral); L03.116 Cellulitis of left lower limb; I48.0 Paroxysmal atrial fibrillation; I10 Essential (primary) hypertension; I73.9 Peripheral vascular disease, unspecified; L97.222 Non-pressure chronic ulcer of left calf with fat layer exposed | CPT/HCPCS: 87070; 87075; 87077; 87147; 87186; 87205; A9270; G0463 ==

== ENCOUNTER 2022-06-24 02:45 | Day surgery (SDC) | payer OTHER | END 2022-06-24 23:07 | disposition home or self-care (01) | LOC: WOUND 02:45 | DX: L97.322 Non-pressure chronic ulcer of left ankle with fat layer exposed (principal); I87.2 Venous insufficiency (chronic) (peripheral); L97.222 Non-pressure chronic ulcer of left calf with fat layer exposed; L97.922 Non-pressure chronic ulcer of unspecified part of left lower leg with fat layer exposed; I73.9 Peripheral vascular disease, unspecified; L03.116 Cellulitis of left lower limb; R60.0 Localized edema | CPT/HCPCS: A9270 ==

== ENCOUNTER 2022-07-01 02:34 | Day surgery (SDC) | payer OTHER | END 2022-07-01 23:48 | disposition home or self-care (01) | LOC: WOUND 02:34 | DX: L97.222 Non-pressure chronic ulcer of left calf with fat layer exposed (principal); L97.922 Non-pressure chronic ulcer of unspecified part of left lower leg with fat layer exposed; L03.116 Cellulitis of left lower limb; R60.0 Localized edema; I73.9 Peripheral vascular disease, unspecified; I87.2 Venous insufficiency (chronic) (peripheral) | CPT/HCPCS: A9270 ==

== ENCOUNTER 2022-07-08 01:48 | Day surgery (SDC) | payer OTHER | END 2022-07-08 22:48 | disposition home or self-care (01) | LOC: WOUND 01:48 | DX: I87.2 Venous insufficiency (chronic) (peripheral) (principal); L03.116 Cellulitis of left lower limb; L97.222 Non-pressure chronic ulcer of left calf with fat layer exposed; T81.31XA Disruption of external operation (surgical) wound, not elsewhere classified, initial encounter; L97.922 Non-pressure chronic ulcer of unspecified part of left lower leg with fat layer exposed; I73.9 Peripheral vascular disease, unspecified; R60.0 Localized edema | CPT/HCPCS: A9270 ==

== ENCOUNTER 2022-07-15 01:40 | Day surgery (SDC) | payer OTHER | END 2022-07-15 22:51 | disposition home or self-care (01) | LOC: WOUND 01:40 | DX: S91.002A Unspecified open wound, left ankle, initial encounter (principal); I87.2 Venous insufficiency (chronic) (peripheral); L97.222 Non-pressure chronic ulcer of left calf with fat layer exposed; L97.922 Non-pressure chronic ulcer of unspecified part of left lower leg with fat layer exposed; L03.116 Cellulitis of left lower limb; R60.0 Localized edema; I73.9 Peripheral vascular disease, unspecified; X58.XXXA Exposure to other specified factors, initial encounter | CPT/HCPCS: A9270 ==

== ENCOUNTER 2022-07-22 01:04 | Day surgery (SDC) | payer OTHER | END 2022-07-23 22:47 | disposition home or self-care (01) | LOC: WOUND 01:04 | DX: S91.002A Unspecified open wound, left ankle, initial encounter (principal); I87.2 Venous insufficiency (chronic) (peripheral); L97.222 Non-pressure chronic ulcer of left calf with fat layer exposed; L97.922 Non-pressure chronic ulcer of unspecified part of left lower leg with fat layer exposed; L03.116 Cellulitis of left lower limb; R60.0 Localized edema; I73.9 Peripheral vascular disease, unspecified; X58.XXXA Exposure to other specified factors, initial encounter | CPT/HCPCS: A9270 ==

== ENCOUNTER 2022-08-01 00:10 | Day surgery (SDC) | payer OTHER | END 2022-08-01 22:43 | disposition home or self-care (01) | LOC: WOUND 00:10 | DX: T81.89XA Other complications of procedures, not elsewhere classified, initial encounter (principal); Z86.73 Personal history of transient ischemic attack (TIA), and cerebral infarction without residual deficits; G20 Parkinson's disease; L97.222 Non-pressure chronic ulcer of left calf with fat layer exposed; L97.922 Non-pressure chronic ulcer of unspecified part of left lower leg with fat layer exposed; I87.2 Venous insufficiency (chronic) (peripheral); I73.9 Peripheral vascular disease, unspecified; L03.116 Cellulitis of left lower limb | CPT/HCPCS: A9270 ==

== ENCOUNTER 2022-08-05 01:35 | Day surgery (SDC) | payer OTHER | END 2022-08-05 23:10 | disposition home or self-care (01) | LOC: WOUND 01:35 | DX: L97.222 Non-pressure chronic ulcer of left calf with fat layer exposed (principal); L97.922 Non-pressure chronic ulcer of unspecified part of left lower leg with fat layer exposed; L03.116 Cellulitis of left lower limb; R60.0 Localized edema; I73.9 Peripheral vascular disease, unspecified; I87.2 Venous insufficiency (chronic) (peripheral) | CPT/HCPCS: A9270 ==

== ENCOUNTER 2022-08-12 00:23 | Day surgery (SDC) | payer OTHER | END 2022-08-12 23:13 | disposition home or self-care (01) | LOC: WOUND 00:23 | DX: I87.312 Chronic venous hypertension (idiopathic) with ulcer of left lower extremity (principal); L97.322 Non-pressure chronic ulcer of left ankle with fat layer exposed; L03.116 Cellulitis of left lower limb; R60.0 Localized edema; I73.9 Peripheral vascular disease, unspecified; I87.2 Venous insufficiency (chronic) (peripheral) | CPT/HCPCS: A9270 ==

== ENCOUNTER 2022-09-02 02:16 | Day surgery (SDC) | payer OTHER | END 2022-09-02 22:57 | disposition home or self-care (01) | LOC: WOUND 02:16 | DX: I87.312 Chronic venous hypertension (idiopathic) with ulcer of left lower extremity (principal); L97.322 Non-pressure chronic ulcer of left ankle with fat layer exposed; L03.116 Cellulitis of left lower limb; R60.0 Localized edema; I73.9 Peripheral vascular disease, unspecified; I87.2 Venous insufficiency (chronic) (peripheral); G20 Parkinson's disease | CPT/HCPCS: G0463 ==

== ENCOUNTER 2022-09-09 01:33 | Day surgery (SDC) | payer OTHER | END 2022-09-09 22:55 | disposition home or self-care (01) | LOC: WOUND 01:33 | DX: I87.312 Chronic venous hypertension (idiopathic) with ulcer of left lower extremity (principal); L97.222 Non-pressure chronic ulcer of left calf with fat layer exposed; L97.922 Non-pressure chronic ulcer of unspecified part of left lower leg with fat layer exposed; L03.116 Cellulitis of left lower limb; I73.9 Peripheral vascular disease, unspecified; I87.2 Venous insufficiency (chronic) (peripheral) ==

== ENCOUNTER 2022-09-16 02:06 | Day surgery (SDC) | payer OTHER | END 2022-09-16 22:47 | disposition home or self-care (01) | LOC: WOUND 02:06 | DX: T81.89XA Other complications of procedures, not elsewhere classified, initial encounter (principal); L97.222 Non-pressure chronic ulcer of left calf with fat layer exposed; L97.922 Non-pressure chronic ulcer of unspecified part of left lower leg with fat layer exposed; L03.116 Cellulitis of left lower limb; R60.0 Localized edema; I73.9 Peripheral vascular disease, unspecified; I87.2 Venous insufficiency (chronic) (peripheral); I87.312 Chronic venous hypertension (idiopathic) with ulcer of left lower extremity | CPT/HCPCS: A9270; G0463 ==

== ENCOUNTER 2022-09-22 00:46 | Day surgery (SDC) | payer OTHER | END 2022-09-22 22:40 | disposition home or self-care (01) | LOC: WOUND 00:46 | DX: I87.312 Chronic venous hypertension (idiopathic) with ulcer of left lower extremity (principal); L97.222 Non-pressure chronic ulcer of left calf with fat layer exposed; L97.922 Non-pressure chronic ulcer of unspecified part of left lower leg with fat layer exposed; L03.116 Cellulitis of left lower limb; R60.0 Localized edema; I73.9 Peripheral vascular disease, unspecified; I87.2 Venous insufficiency (chronic) (peripheral) ==

== ENCOUNTER 2022-09-29 01:02 | Day surgery (SDC) | payer OTHER | END 2022-09-29 22:44 | disposition home or self-care (01) | LOC: WOUND 01:02 | DX: I87.312 Chronic venous hypertension (idiopathic) with ulcer of left lower extremity (principal); L97.922 Non-pressure chronic ulcer of unspecified part of left lower leg with fat layer exposed; L97.222 Non-pressure chronic ulcer of left calf with fat layer exposed; I87.2 Venous insufficiency (chronic) (peripheral); I73.9 Peripheral vascular disease, unspecified; R60.0 Localized edema; L03.116 Cellulitis of left lower limb | CPT/HCPCS: A9270 ==

== ENCOUNTER 2022-10-07 03:27 | Day surgery (SDC) | payer OTHER | END 2022-10-07 22:40 | disposition home or self-care (01) | LOC: WOUND 03:27 | DX: S91.002A Unspecified open wound, left ankle, initial encounter (principal); X58.XXXA Exposure to other specified factors, initial encounter; L97.922 Non-pressure chronic ulcer of unspecified part of left lower leg with fat layer exposed; I87.312 Chronic venous hypertension (idiopathic) with ulcer of left lower extremity; L97.222 Non-pressure chronic ulcer of left calf with fat layer exposed; I87.2 Venous insufficiency (chronic) (peripheral); I73.9 Peripheral vascular disease, unspecified; R60.0 Localized edema; L03.116 Cellulitis of left lower limb | CPT/HCPCS: A9270; G0463 ==

== ENCOUNTER 2022-10-14 01:52 | Day surgery (SDC) | payer OTHER | END 2022-10-14 22:58 | disposition home or self-care (01) | LOC: WOUND 01:52 | DX: I87.312 Chronic venous hypertension (idiopathic) with ulcer of left lower extremity (principal); L97.922 Non-pressure chronic ulcer of unspecified part of left lower leg with fat layer exposed; I87.2 Venous insufficiency (chronic) (peripheral); I73.9 Peripheral vascular disease, unspecified; R60.0 Localized edema; L03.116 Cellulitis of left lower limb ==

== ENCOUNTER 2022-10-14 16:11 | Emergency (ER) | payer OTHER ==
[~2022-10-14] VITALS: Ht 182.9 cm; Wt 104.3 kg
[2022-10-14 17:00] LABS: BASOPHILS ABSOLUTE AUTO 0.02 K/mm3 (0.00-0.23); BASOPHILS PERCENT AUTO 0 % (0-2); EOSINOPHILS ABSOLUTE AUTO 0.04 K/mm3 (0.00-0.68); EOSINOPHILS PERCENT AUTO 0 % (0-6); Hemoglobin 10.7 g/dL (13.5-17.5); IMMATURE GRAN ABSOLUTE AUTO 0.05 K/mm3 (0.00-0.10); IMMATURE GRAN PERCENT AUTO 1 % (0-1); LYMPHOCYTES ABSOLUTE AUTO 0.82 K/mm3 (0.84-5.20); LYMPHOCYTES PERCENT AUTO 9 % (21-46); MONOCYTES ABSOLUTE AUTO 0.98 K/mm3 (0.16-1.47); MONOCYTES PERCENT AUTO 11 % (4-13); Mean Corpuscular HGB 28.4 pg (26.0-34.0); Mean Corpuscular HGB Conc 31.5 g/dL (31.5-36.5); Mean Corpuscular Volume 90 fL (80-100); Mean Platelet Volume 10.4 fL (9.1-12.4); NEUTROPHILS ABSOLUTE AUTO 7.05 K/mm3 (1.96-9.15); NEUTROPHILS PERCENT AUTO 79 % (41-73); Platelet Count 232 K/mm3 (150-400); RDW Coefficient Variation 13.9 % (11.7-14.2); RDW Standard Deviation 46.2 fL (35.1-46.3); Red Blood Cell Count 3.77 M/mm3 (4.30-5.90); White Blood Cell Count 8.96 K/mm3 (4.00-11.30)
[2022-10-14 17:55] LABS: Albumin, Blood 3.8 g/dL (3.4-5.0); Albumin/Globulin Ratio 1.1 (0.8-1.8); Bilirubin, Total 0.4 mg/dL (0.1-1.0); Bun/Creatinine Ratio 18.6 (12.0-20.0); Calcium, Blood 9.2 mg/dL (8.5-10.1); Creatinine, Blood 1.45 mg/dL (0.60-1.20); Globulin, Blood 3.5 g/dL (2.2-4.0); Potassium, Blood 3.9 mmol/L (3.5-5.5); Total Protein, Blood 7.3 g/dL (6.4-8.2)
[2022-10-14 21:19] LABS: Source, Urine Clean Catch
[2022-10-14 21:24] LABS: Appearance, Urine Clear (Clear); Bilirubin, Urine Neg (Neg); Blood, Urine 1+ (Neg); Color, Urine Yellow (P-Yellow); Glucose Qualitative, Urine Neg (Neg); Ketones, Urine Neg (Neg); Leukocyte Esterase, Urine Neg (Neg); Nitrite, Urine Neg (Neg); Protein, Urine 2+ (Neg); Specific Gravity, Urine 1.025 (1.003-1.022); Urobilinogen, Urine NORM (Normal)
[2022-10-14 21:31] LABS: Bacteria Few /hpf; Squamous Epithelial Cells Rare /hpf (Few); White Blood Cells, Urine 0-2 /hpf (0-5)
[2022-10-14 22:00] VITALS: BP 137/71
== END 2022-10-14 23:37 | disposition home or self-care (01) ==
LOC: ER 16:11
PROVIDERS: Physician Assistant
DX: R53.1 Weakness (principal); Z91.041 Radiographic dye allergy status; Z91.048 Other nonmedicinal substance allergy status; Z79.899 Other long term (current) drug therapy; G20 Parkinson's disease; G47.00 Insomnia, unspecified; I10 Essential (primary) hypertension; I48.91 Unspecified atrial fibrillation; Z87.891 Personal history of nicotine dependence
CPT/HCPCS: 70450; 71046; 80053; 81001; 85025; 93005; 93010; 96360; 99285-25; J7030

== ENCOUNTER 2022-10-19 05:40 | Day surgery (SDC) | payer OTHER | END 2022-10-19 23:03 | disposition home or self-care (01) | LOC: WOUND 05:40 | DX: S91.002D Unspecified open wound, left ankle, subsequent encounter (principal); X58.XXXD Exposure to other specified factors, subsequent encounter; I87.312 Chronic venous hypertension (idiopathic) with ulcer of left lower extremity; L97.922 Non-pressure chronic ulcer of unspecified part of left lower leg with fat layer exposed; L97.222 Non-pressure chronic ulcer of left calf with fat layer exposed; I87.2 Venous insufficiency (chronic) (peripheral); I73.9 Peripheral vascular disease, unspecified; R60.0 Localized edema; L03.116 Cellulitis of left lower limb; G20 Parkinson's disease | CPT/HCPCS: A9270 ==

== ENCOUNTER → 2022-10-19 | Outpatient (CLI) | payer OTHER ==
[2022-10-19 09:48] LABS: Source, Urine Clean Catch
[2022-10-19 14:52] LABS: Appearance, Urine Cloudy (Clear); Bilirubin, Urine Neg (Neg); Blood, Urine Neg (Neg); Color, Urine Yellow (P-Yellow); Glucose Qualitative, Urine Neg (Neg); Ketones, Urine Neg (Neg); Leukocyte Esterase, Urine Neg (Neg); Nitrite, Urine Neg (Neg); Protein, Urine 2+ (Neg); Urobilinogen, Urine NORM (Normal)
[2022-10-19 15:18] LABS: Amorphous Light (0-Heavy); Bacteria Many /hpf; Red Blood Cells, Urine 0-2 /hpf (0-2); Squamous Epithelial Cells Not Seen /hpf (Few)
== END | disposition home or self-care (01) ==
LOC: LAB 08:00 → LAB SHORT 08:00
PROVIDERS: Student in an Organized Health Care Education/Training Program
DX: R53.1 Weakness (principal)
CPT/HCPCS: 81001; 87086

== ENCOUNTER 2022-10-21 08:24 | Day surgery (SDC) | payer OTHER | END 2022-10-22 22:41 | disposition home or self-care (01) | LOC: WOUND 08:24 | DX: I87.312 Chronic venous hypertension (idiopathic) with ulcer of left lower extremity (principal); L97.922 Non-pressure chronic ulcer of unspecified part of left lower leg with fat layer exposed; L97.222 Non-pressure chronic ulcer of left calf with fat layer exposed; I87.2 Venous insufficiency (chronic) (peripheral); I73.9 Peripheral vascular disease, unspecified; R60.0 Localized edema; L03.116 Cellulitis of left lower limb ==

== ENCOUNTER 2022-10-28 01:02 | Day surgery (SDC) | payer OTHER | END 2022-10-30 22:40 | disposition home or self-care (01) | LOC: WOUND 01:02 | DX: S91.002A Unspecified open wound, left ankle, initial encounter (principal); X58.XXXA Exposure to other specified factors, initial encounter; I87.312 Chronic venous hypertension (idiopathic) with ulcer of left lower extremity; L97.922 Non-pressure chronic ulcer of unspecified part of left lower leg with fat layer exposed; L97.222 Non-pressure chronic ulcer of left calf with fat layer exposed; I87.2 Venous insufficiency (chronic) (peripheral); I73.9 Peripheral vascular disease, unspecified; R60.0 Localized edema; L03.116 Cellulitis of left lower limb; G20 Parkinson's disease | CPT/HCPCS: A9270; Q4133 ==

== ENCOUNTER 2022-11-04 02:45 | Day surgery (SDC) | payer OTHER | END 2022-11-06 22:52 | disposition home or self-care (01) | LOC: WOUND 02:45 | DX: I87.312 Chronic venous hypertension (idiopathic) with ulcer of left lower extremity (principal); L97.322 Non-pressure chronic ulcer of left ankle with fat layer exposed; L97.222 Non-pressure chronic ulcer of left calf with fat layer exposed; I87.2 Venous insufficiency (chronic) (peripheral); I73.9 Peripheral vascular disease, unspecified; R60.0 Localized edema; L03.116 Cellulitis of left lower limb; G20 Parkinson's disease | CPT/HCPCS: A9270 ==

== ENCOUNTER 2022-11-11 03:35 | Day surgery (SDC) | payer OTHER | END 2022-11-14 23:09 | disposition home or self-care (01) | LOC: WOUND 03:35 | DX: S91.002D Unspecified open wound, left ankle, subsequent encounter (principal); I87.312 Chronic venous hypertension (idiopathic) with ulcer of left lower extremity; L97.922 Non-pressure chronic ulcer of unspecified part of left lower leg with fat layer exposed; L97.222 Non-pressure chronic ulcer of left calf with fat layer exposed; I87.2 Venous insufficiency (chronic) (peripheral); I73.9 Peripheral vascular disease, unspecified; R60.0 Localized edema; L03.116 Cellulitis of left lower limb; X58.XXXD Exposure to other specified factors, subsequent encounter | CPT/HCPCS: A9270 ==

== ENCOUNTER → 2022-11-18 | Day surgery (SDC) | payer OTHER | LOC: WOUND 03:22 | DX: S91.002A Unspecified open wound, left ankle, initial encounter (principal); I87.312 Chronic venous hypertension (idiopathic) with ulcer of left lower extremity; L97.922 Non-pressure chronic ulcer of unspecified part of left lower leg with fat layer exposed; L97.222 Non-pressure chronic ulcer of left calf with fat layer exposed; I87.2 Venous insufficiency (chronic) (peripheral); I73.9 Peripheral vascular disease, unspecified; R60.0 Localized edema; L03.116 Cellulitis of left lower limb | CPT/HCPCS: A9270 ==

== ENCOUNTER 2022-11-30 02:38 | Day surgery (SDC) | payer OTHER | END 2022-11-30 22:46 | disposition home or self-care (01) | LOC: WOUND 02:38 | DX: S91.002D Unspecified open wound, left ankle, subsequent encounter (principal); I87.312 Chronic venous hypertension (idiopathic) with ulcer of left lower extremity; L97.922 Non-pressure chronic ulcer of unspecified part of left lower leg with fat layer exposed; L97.222 Non-pressure chronic ulcer of left calf with fat layer exposed; I87.2 Venous insufficiency (chronic) (peripheral); I73.9 Peripheral vascular disease, unspecified; R60.0 Localized edema; L03.116 Cellulitis of left lower limb; X58.XXXD Exposure to other specified factors, subsequent encounter | CPT/HCPCS: G0463 ==

== ENCOUNTER 2023-12-29 19:28 | Emergency (ER) | payer OTHER ==
[~2023-12-29] VITALS: Ht 180.3 cm; Wt 106.6 kg
[2023-12-29] MEDS ORDERED: Diphth,Pertuss(Acell),Tet Vac 0.5 ML VIAL IM ONE (19:35)
[2023-12-29 21:51] VITALS: BP 141/73
== END 2023-12-29 21:45 | disposition home or self-care (01) ==
LOC: ER 19:28
DX: S01.21XA Laceration without foreign body of nose, initial encounter (principal); W01.10XA Fall on same level from slipping, tripping and stumbling with subsequent striking against unspecified object, initial encounter; G47.30 Sleep apnea, unspecified; I10 Essential (primary) hypertension; I48.91 Unspecified atrial fibrillation; K21.9 Gastro-esophageal reflux disease without esophagitis; Z91.048 Other nonmedicinal substance allergy status; Z88.8 Allergy status to other drugs, medicaments and biological substances; Z91.041 Radiographic dye allergy status; Z79.899 Other long term (current) drug therapy; Z87.891 Personal history of nicotine dependence
CPT/HCPCS: 12011; 70450; 90471; 90715; 99284-25

== ENCOUNTER → 2024-05-13 | Outpatient (CLI) | payer OTHER | END | disposition home or self-care (01) | LOC: LAB SHORT 14:43 → LAB 14:43 | DX: L97.922 Non-pressure chronic ulcer of unspecified part of left lower leg with fat layer exposed (principal) | CPT/HCPCS: 87070; 87075; 87186; 87205 ==

== ENCOUNTER → 2024-05-28 | Outpatient (CLI) | payer OTHER | END | disposition home or self-care (01) | LOC: LAB SHORT 16:25 → LAB 16:25 | DX: R30.9 Painful micturition, unspecified (principal) | CPT/HCPCS: 87086 ==

== ENCOUNTER 2024-08-11 16:49 | Emergency (ER) | payer OTHER ==
[~2024-08-11] VITALS: Ht 182.9 cm; Wt 106.6 kg
[~2024-08-11 16:49] MED LIST changes: -ATOR40TA; +ATOR40TA PO
[2024-08-11 18:04] LABS: BASOPHILS ABSOLUTE AUTO 0.01 K/mm3 (0.00-0.23); BASOPHILS PERCENT AUTO 0 % (0-2); EOSINOPHILS PERCENT AUTO 0 % (0-6); Hematocrit 30.1 % (37.0-53.0); Hemoglobin 9.6 g/dL (13.5-17.5); IMMATURE GRAN ABSOLUTE AUTO 0.05 K/mm3 (0.00-0.10); IMMATURE GRAN PERCENT AUTO 1 % (0-1); LYMPHOCYTES ABSOLUTE AUTO 0.31 K/mm3 (0.84-5.20); LYMPHOCYTES PERCENT AUTO 5 % (21-46); MONOCYTES ABSOLUTE AUTO 1.02 K/mm3 (0.16-1.47); MONOCYTES PERCENT AUTO 16 % (4-13); Mean Corpuscular HGB 29.3 pg (26.0-34.0); Mean Corpuscular HGB Conc 31.9 g/dL (31.5-36.5); Mean Corpuscular Volume 92 fL (80-100); Mean Platelet Volume 9.4 fL (9.1-12.4); NEUTROPHILS ABSOLUTE AUTO 4.96 K/mm3 (1.96-9.15); NEUTROPHILS PERCENT AUTO 78 % (41-73); Platelet Count 307 K/mm3 (150-400); RDW Coefficient Variation 13.1 % (11.7-14.2); RDW Standard Deviation 44.1 fL (35.1-46.3); Red Blood Cell Count 3.28 M/mm3 (4.30-5.90); White Blood Cell Count 6.35 K/mm3 (4.00-11.30)
[2024-08-11 18:35] LABS: Albumin, Blood 3.6 g/dL (3.4-5.0); Albumin/Globulin Ratio 0.8 (0.8-1.8); Bilirubin, Total 0.5 mg/dL (0.1-1.0); Bun/Creatinine Ratio 16.4 (12.0-20.0); Creatinine, Blood 0.91 mg/dL (0.60-1.20); Globulin, Blood 4.3 g/dL (2.2-4.0); Magnesium, Blood 1.8 mg/dL (1.6-2.4); Potassium, Blood 4.4 mmol/L (3.5-5.5); Total Protein, Blood 7.9 g/dL (6.4-8.2)
[2024-08-11 19:05] LABS: Source, Urine Clean Catch
[2024-08-11 19:14] LABS: Appearance, Urine Clear (Clear); Bilirubin, Urine Neg (Neg); Blood, Urine Neg (Neg); Color, Urine Yellow (P-Yellow); Glucose Qualitative, Urine 2+ (Neg); Ketones, Urine 1+ (Neg); Leukocyte Esterase, Urine Neg (Neg); Nitrite, Urine Neg (Neg); Protein, Urine 2+ (Neg); Urobilinogen, Urine NORM (Normal)
[2024-08-11 19:29] LABS: Bacteria Rare /hpf; Squamous Epithelial Cells Rare /hpf (Few); White Blood Cells, Urine 0-2 /hpf (0-5)
[2024-08-11 19:37] LABS: CORONAVIRUS COVID-19 AG Negative (NEGATIVE); INFLUENZA A AG Negative (NEGATIVE); INFLUENZA B AG Negative (NEGATIVE)
[2024-08-11 19:45] VITALS: BP 166/82
== END 2024-08-11 20:11 | disposition home or self-care (01) ==
LOC: ER 16:49
PROVIDERS: Student in an Organized Health Care Education/Training Program
DX: R53.1 Weakness (principal); G20.A1 Parkinson's disease without dyskinesia, without mention of fluctuations; I10 Essential (primary) hypertension; K21.9 Gastro-esophageal reflux disease without esophagitis; I48.91 Unspecified atrial fibrillation; Z87.891 Personal history of nicotine dependence; Z91.041 Radiographic dye allergy status; Z91.048 Other nonmedicinal substance allergy status; Z79.811 Long term (current) use of aromatase inhibitors; Z79.899 Other long term (current) drug therapy; Z16.32 Resistance to antifungal drug(s); Z79.02 Long term (current) use of antithrombotics/antiplatelets; Z79.85 Long-term (current) use of injectable non-insulin antidiabetic drugs
CPT/HCPCS: 71045; 80053; 81001; 83735; 84484; 85025; 87428-QW; 93005; 93010; 99285-25

== ENCOUNTER 2024-08-14 08:12 | Inpatient (IN) | payer OTHER ==
[~2024-08-14] VITALS: Ht 182.9 cm; Wt 102.7 kg
[2024-08-14 09:21] LABS: Albumin, Blood 3.3 g/dL (3.4-5.0); Albumin/Globulin Ratio 0.8 (0.8-1.8); Bilirubin, Total 0.5 mg/dL (0.1-1.0); Bun/Creatinine Ratio 24.4 (12.0-20.0); Calcium, Blood 8.5 mg/dL (8.5-10.1); Creatinine, Blood 0.98 mg/dL (0.60-1.20); Globulin, Blood 4.1 g/dL (2.2-4.0); Potassium, Blood 4.1 mmol/L (3.5-5.5); Total Protein, Blood 7.4 g/dL (6.4-8.2)
[2024-08-14 09:28] LABS: BASOPHILS ABSOLUTE AUTO 0.01 K/mm3 (0.00-0.23); BASOPHILS PERCENT AUTO 0 % (0-2); EOSINOPHILS PERCENT AUTO 0 % (0-6); Hemoglobin 9.8 g/dL (13.5-17.5); IMMATURE GRAN ABSOLUTE AUTO 0.06 K/mm3 (0.00-0.10); IMMATURE GRAN PERCENT AUTO 1 % (0-1); LYMPHOCYTES ABSOLUTE AUTO 0.42 K/mm3 (0.84-5.20); LYMPHOCYTES PERCENT AUTO 9 % (21-46); MONOCYTES ABSOLUTE AUTO 0.64 K/mm3 (0.16-1.47); MONOCYTES PERCENT AUTO 13 % (4-13); Mean Corpuscular HGB 29.6 pg (26.0-34.0); Mean Corpuscular HGB Conc 33.8 g/dL (31.5-36.5); Mean Corpuscular Volume 88 fL (80-100); Mean Platelet Volume 9.1 fL (9.1-12.4); NEUTROPHILS ABSOLUTE AUTO 3.79 K/mm3 (1.96-9.15); NEUTROPHILS PERCENT AUTO 77 % (41-73); Platelet Count 278 K/mm3 (150-400); RDW Coefficient Variation 13.2 % (11.7-14.2); RDW Standard Deviation 42.8 fL (35.1-46.3); Red Blood Cell Count 3.31 M/mm3 (4.30-5.90); White Blood Cell Count 4.92 K/mm3 (4.00-11.30)
[2024-08-14] MEDS ORDERED: Acetaminophen 325 MG TABLET PO ONE (12:15)
[2024-08-14 12:34] LABS: Source, Urine Voided
[2024-08-14 12:40] LABS: Appearance, Urine Clear (Clear); Bilirubin, Urine Neg (Neg); Blood, Urine Neg (Neg); Color, Urine Yellow (P-Yellow); Glucose Qualitative, Urine Neg (Neg); Ketones, Urine 1+ (Neg); Leukocyte Esterase, Urine Neg (Neg); Nitrite, Urine Neg (Neg); Protein, Urine 2+ (Neg); Urobilinogen, Urine NORM (Normal)
[2024-08-14 13:00] LABS: Bacteria Many /hpf; Hyaline Casts 0-2 /lpf (0-2); Mucus Light (0-Heavy); Red Blood Cells, Urine 0-2 /hpf (0-2); Squamous Epithelial Cells Mod /hpf (Few); White Blood Cells, Urine 0-2 /hpf (0-5)
[2024-08-14] MEDS ORDERED: FLU VACC TS2024-25(6MOS UP)/PF 45 MCG/0.5 ML SYRINGE IM SCH (13:00)
[2024-08-14] MEDS ORDERED: Ondansetron HCl 2 MG / ML 2ML Vial IV PRN (13:00)
[2024-08-14] MEDS ORDERED: Sod Ferric Gluc Complx/Sucrose 125 MG in NS 100 ML IV SCH (14:00)
[2024-08-14] MEDS ORDERED: Cefepime HCl 1,000 MG in NS 100 ML IV SCH ×2 (14:00→15:00)
[2024-08-14 15:56] VITALS: BP 155/74
[2024-08-14] MEDS ORDERED: CARBLEV25 SL (15:57)
[2024-08-14] MEDS ORDERED: XARELTO20 MG PO (15:59)
[2024-08-14] MEDS ORDERED: Rivaroxaban 10 MG Tab PO SCH (17:00)
[2024-08-14] MEDS ORDERED: CEFD300 PO (17:42)
[2024-08-14] MEDS ORDERED: Furosemide 10 MG / ML 2ML Vial IV SCH (18:00)
--- NOTE | 2024-08-14 18:15 | NUR ---
"Spiritual Care | Pt. Request Pt. is awake in bed and welcomes my visit. Pts. daughter is present. Facilitate a life review and re-establish rapport as the family is known to this repair clerk from the community. Pt. displays evidence of being alert but with slow motor skills. ZCZonsidered matters of toro and belief, and prayed with the Pt. Pt. verbalized gratitude for the spiritual care visit and welcomed this repair clerk to return."
--- NOTE | 2024-08-14 18:57 | NUR ---
SHIFT SUMMARY PT AOX4, COOPERATIVE, ABLE TO MAKE NEEDS KNOWN. PT IS CONTINENT AND USES URINAL. ON TELE RUNNING A FIB 72 BPM. 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 PUBLIC ADDRESS SYSTEM INSTALLER WORKED WITH PT TODAY, DESCRIBED PT 1 PERSON ASSIST, HOWEVER GREEN ENERGY MARKETING ANALYST DESCRIBES 2 PERSON ASSIST. CURRENTLY DIURESING. NO OTHER ACUTE EVENTS TOOK PLACE THIS SHIFT. BED IN LOWEST POSITION, CALL LIGHT WITHIN REACH.
[2024-08-14 19:32] VITALS: BP 127/94
[2024-08-14] MEDS ORDERED: Atorvastatin 40 MG Tab PO SCH (21:00)
[2024-08-14] MEDS ORDERED: Docusate Sodium 100 MG Cap PO SCH (21:00)
[2024-08-14] MEDS ORDERED: Lactobacil 2-S.Thermo-Bifido 1 1 Cap PO SCH (21:00)
[2024-08-14] MEDS ORDERED: Levodopa/Carbidopa 100 / 25 MG Tab PO SCH (21:00)
[2024-08-14] MEDS ORDERED: Enoxaparin 100 MG/ML 1ML SYR SC SCH (21:00)
[2024-08-14] MEDS ORDERED: Sennosides 8.6 MG Tab PO SCH (21:00)
[2024-08-14] MEDS ORDERED: NS 250 ML IV PRN (22:40)
[2024-08-15 00:10] VITALS: BP 144/70
[2024-08-15] MEDS ORDERED: Acetaminophen 325 MG TABLET PO PRN (00:45)
[2024-08-15] MEDS ORDERED: Acetaminophen 500 MG Tab PO ONE (00:45)
--- NOTE | 2024-08-15 00:46 | NUR ---
PHYSICIAN CONTACT GAME MODERATOR REPORTED NEW FEVER OF 102.6 AND OXYGEN OF 88% ON ROOM AIR. PT PLACED ON 2LPM OF OXYGEN. RECHECK OF FEVER WITH ORAL SHOWED TEMP OF 103.1. OBSERVED PT--ABLE TO ANSWER BASIC ORIENATION QUESTIONS BUT RESPONSES ARE SLOW. PT DENIES PAIN/DISCOMFORT. SKIN IS HOT TO TOUCH AND MOIST. CALL TO SPECIAL DAY CLASS TEACHER. SPOKE WITH DR AVILA. ADVISED OF PT CURRENT CONDITION. ADVISED OF PT LIVER LABS, NEW NEED FOR O2, AND FEVER. NEW ORDER FOR PCR RESP PANEL, 1000MG TYLENOL NOW, THEN 650MG TYLENOL Q6.
--- NOTE | 2024-08-15 01:23 | NUR ---
RESPIRATORY PANEL COLLECTED AND SENT TO LAB.
[2024-08-15 02:22] LABS: Adenovirus Not Detected (NOT DETECT); Bordetella pertussis Not Detected (NOT DETECT); Chlamydophila pneumoniae Not Detected (NOT DETECT); Coronavirus 229E Not Detected (NOT DETECT); Coronavirus HKU1 Not Detected (NOT DETECT); Coronavirus NL63 Not Detected (NOT DETECT); Coronavirus OC43 Not Detected (NOT DETECT); Human Metapneumovirus Not Detected (NOT DETECT); Human Rhinovirus/Enterovirus Not Detected (NOT DETECT); Influenza A/2009-H1 Not Detected (NOT DETECT); Influenza A/H1 Not Detected (NOT DETECT); Influenza A/H3 Not Detected (NOT DETECT); Influenza B Not Detected (NOT DETECT); Mycoplasma pneumoniae Not Detected (NOT DETECT); Parainfluenza Virus 1 Not Detected (NOT DETECT); Parainfluenza Virus 2 Not Detected (NOT DETECT); Parainfluenza Virus 3 Not Detected (NOT DETECT); Parainfluenza Virus 4 Not Detected (NOT DETECT); Respiratory Syncytial Virus Not Detected (NOT DETECT); SARS-Cov-2 (COVID-19), BioFire Detected (NOT DETECT)
--- NOTE | 2024-08-15 04:12 | NUR ---
SHIFT SUMMARY PATIENT HAD FEVER 103.[address] AVILA ORDERED TYELENOL 1,000 MG AND RESPIRATORY PANEL. TEMP RECHECK 100.7 AND LATER 97.2. COVID-19+. ALERT ORIENTED AND BEDREST. PARKINSON TREMORS AND ASSISTED WITH MEDICATION. PIV INTACT. TELE MONITOR AFIB 80 AND CONVERT TO NSR 70'S @ 03:10 PER TECH. PLACED ON 2L O2 N/C WITH 02 STATS 88-90% ON RA. DRESSING TO LEFT ANKLE INTACT. DENIES CHEST PAIN AND N/V. CALL LIGHT IN REACH. BED IN LOWEST POSITION. WILL CONTINUE TO MONITOR UNTIL DAY SHIFT NURSE ASSUMES CARE.
[2024-08-15 04:18] VITALS: BP 130/58
[2024-08-15 05:58] LABS: BASOPHILS ABSOLUTE AUTO 0.01 K/mm3 (0.00-0.23); BASOPHILS PERCENT AUTO 0 % (0-2); EOSINOPHILS PERCENT AUTO 0 % (0-6); Hematocrit 25.6 % (37.0-53.0); Hemoglobin 8.6 g/dL (13.5-17.5); IMMATURE GRAN ABSOLUTE AUTO 0.01 K/mm3 (0.00-0.10); IMMATURE GRAN PERCENT AUTO 0 % (0-1); LYMPHOCYTES PERCENT AUTO 13 % (21-46); MONOCYTES ABSOLUTE AUTO 0.71 K/mm3 (0.16-1.47); MONOCYTES PERCENT AUTO 18 % (4-13); Mean Corpuscular HGB 29.3 pg (26.0-34.0); Mean Corpuscular HGB Conc 33.6 g/dL (31.5-36.5); Mean Corpuscular Volume 87 fL (80-100); Mean Platelet Volume 9.2 fL (9.1-12.4); NEUTROPHILS ABSOLUTE AUTO 2.66 K/mm3 (1.96-9.15); NEUTROPHILS PERCENT AUTO 68 % (41-73); Platelet Count 246 K/mm3 (150-400); RDW Coefficient Variation 13.2 % (11.7-14.2); RDW Standard Deviation 41.7 fL (35.1-46.3); Red Blood Cell Count 2.94 M/mm3 (4.30-5.90); White Blood Cell Count 3.89 K/mm3 (4.00-11.30)
[2024-08-15 06:26] LABS: Alanine Aminotransfer (ALT/SGP 16 U/L (12-78); Albumin/Globulin Ratio 0.8 (0.8-1.8); Alk Phos 67 U/L (50-136); Anion Gap 12 mmol/L (3-11); Aspartate Aminotrans (AST/SGOT 38 U/L (12-37); Bilirubin, Total 0.5 mg/dL (0.1-1.0); Blood Urea Nitrogen 25 mg/dL (8-24); Bun/Creatinine Ratio 21.2 (12.0-20.0); CHOL/HDL RATIO 2.4; CO2, Blood 22 mmol/L (21-32); Chloride, Blood 95 mmol/L (98-108); Cholesterol 82 mg/dL (50-200); Creatinine, Blood 1.18 mg/dL (0.60-1.20); Globulin, Blood 3.7 g/dL (2.2-4.0); Glomerular Filtration Rate 63 (60-); Glucose, Blood 132 mg/dL (70-99); HDL Cholesterol 34 mg/dL (>39); Low Density Lipoprotein Chol 34 mg/dL (0-110); Potassium, Blood 3.6 mmol/L (3.5-5.5); Sodium, Blood 125 mmol/L (136-145); Total Protein, Blood 6.7 g/dL (6.4-8.2); Triglycerides 72 mg/dL (30-160); Very Low Density Lipoprot Chol 14 mg/dL (6-32)
[2024-08-15 08:00] VITALS: BP 165/82
[2024-08-15] MEDS ORDERED: Furosemide 10 MG / ML 2ML Vial IV SCH (09:00)
[2024-08-15] MEDS ORDERED: Citalopram Hydrobromide 20 MG Tab PO SCH (09:00)
[2024-08-15] MEDS ORDERED: Losartan Potassium 50 MG Tab PO SCH (09:00)
[2024-08-15] MEDS ORDERED: dexAMETHasone 4 MG TAB PO SCH (09:00)
[2024-08-15] MEDS ORDERED: Sodium Chloride 1 GM TAB PO SCH (09:00)
--- NOTE | 2024-08-15 09:00 | NUR ---
pt laying in bed, assisted him to dangle for breakfast, a/ox3-4, forgetful, cooperative with care, follows commands well, reports back pain, tylenol given, lungs are dim t/o, resp even and unlabored, no cough noted, hrr, tele in place running sr since three am, with 1st degree and pvc's, no edea noted, ppp+1, cap refill<3 sec, vs stable, afebrile, piv to lac site is clear and patent, btx4, abd flat soft nontender, voids without diff, skin c/w/d, maew, very weak, agustin, call light in reach.
--- NOTE | 2024-08-15 10:49 | NUR ---
Pt had a two second pause per tele petroleum laboratory technician, Dr. Banks notified. no new orders. call light in reach.
[2024-08-15 12:14] VITALS: BP 151/81
[2024-08-15] MEDS ORDERED: CARBIDOPA-LEVO1 EA15 PO (12:36)
[2024-08-15] MEDS ORDERED: ATOR40TA PO (13:04)
--- NOTE | 2024-08-15 16:02 | NUR ---
Pt. is resting in bed. Daughter is at bedside and welcomes my visit. Agree with family it is best to allow Pt. to rest. Facilitate an update with one daughter. Listen with empathy and interest. Daughter welcomed this trade specialist to return tomorrow.
[2024-08-15 16:11] VITALS: BP 144/90
[2024-08-15] MEDS ORDERED: Potassium Chloride 10 Meq Tablet SA PO SCH (17:00)
--- NOTE | 2024-08-15 19:03 | NUR ---
pt sits on the side of the bed to eat, daughters have been in the room with him throughout the day, no acute changes this shift, call light in reach.
[2024-08-15 19:19] VITALS: BP 117/78
[2024-08-15] MEDS ORDERED: Enoxaparin 100 MG/ML 1ML SYR SC SCH (21:00)
[2024-08-15] MEDS ORDERED: NIRMATRELVIR/RITONAVIR 3 TAB BLISTER CARD PO SCH (21:00)
[2024-08-16 00:27] VITALS: BP 123/70
[2024-08-16 03:49] VITALS: BP 145/67
--- NOTE | 2024-08-16 04:24 | NUR ---
SHIFT SUMMARY PT ALERT ORIENTED ABLE TO VERBALIZE NEEDS. GETS UP IN CHAIR WITH 2 PERSON ASSIST. REMAINS ON CEFEPIME AND PAXLOVID. REMAINS ON TELEMETRY AT T AT 65. DRESSING IS INTACT TO HIS VSS ON 2L VIA NC AND CPAP. C/O SOB ON EXERTION. RESTING IN BED AT THIS TIME WITH CALL LIGHT IN REACH
[2024-08-16 07:15] LABS: BASOPHILS PERCENT AUTO 0 % (0-2); EOSINOPHILS ABSOLUTE AUTO 0.01 K/mm3 (0.00-0.68); EOSINOPHILS PERCENT AUTO 0 % (0-6); Hematocrit 27.3 % (37.0-53.0); Hemoglobin 9.1 g/dL (13.5-17.5); IMMATURE GRAN ABSOLUTE AUTO 0.02 K/mm3 (0.00-0.10); IMMATURE GRAN PERCENT AUTO 0 % (0-1); LYMPHOCYTES ABSOLUTE AUTO 0.37 K/mm3 (0.84-5.20); LYMPHOCYTES PERCENT AUTO 7 % (21-46); MONOCYTES PERCENT AUTO 14 % (4-13); Mean Corpuscular HGB 29.3 pg (26.0-34.0); Mean Corpuscular HGB Conc 33.3 g/dL (31.5-36.5); Mean Corpuscular Volume 88 fL (80-100); Mean Platelet Volume 9.4 fL (9.1-12.4); NEUTROPHILS ABSOLUTE AUTO 4.03 K/mm3 (1.96-9.15); NEUTROPHILS PERCENT AUTO 79 % (41-73); Platelet Count 242 K/mm3 (150-400); RDW Coefficient Variation 13.2 % (11.7-14.2); RDW Standard Deviation 41.9 fL (35.1-46.3); Red Blood Cell Count 3.11 M/mm3 (4.30-5.90); White Blood Cell Count 5.13 K/mm3 (4.00-11.30)
[2024-08-16 07:32] LABS: Bun/Creatinine Ratio 26.2 (12.0-20.0); Calcium, Blood 8.2 mg/dL (8.5-10.1); Creatinine, Blood 1.03 mg/dL (0.60-1.20)
[2024-08-16 07:53] VITALS: BP 158/73
--- NOTE | 2024-08-16 09:00 | NUR ---
pt sitting up on the side of the bed eating breakfast, daughter in room, a/ox3-4, a bit slow to respond, cooperative with care, follows commands well, denies pain, states he slept last night, lungs are very dim t/o, resp even and unlabored, no cough noted, hrr, trace edema noted to b/l le, ppp +1, cap refill <3 sec vs stable, afebrile, piv to lac site is clear and patent, btx4, abd round soft nontender, voids without diff, skin c/w/d except left ankle has dressing for chronic wound, bridgette, weak, agustin, call light in reach.
--- NOTE | 2024-08-16 09:36 | NUR ---
Pt. is awake and is sitting up on the side of the bed while eating his breakfast. Pt. is pleasant and welcomed my visit. Facilitated an update mostly with the Pts. daughter at bedside. Listend with interest and empathy while seking to normalize the Pt. experience. Pt. displayed evidence of both motivation and compliance as he seeks to shake his virus. Pt. is a man of toro whose family is known to this chapalin from the community., Prayed with the Pt. pt. and daughter verbalize gratitude for the spiritual care visit.
[2024-08-16 12:10] VITALS: BP 137/68
--- NOTE | 2024-08-16 12:19 | NUR ---
dressing on ankle was changed, minimal drainage noted. daughter states they have it changed twice a week. pt tolerated well, he was found to be 88% on r/a, placed him on 2 liters of 02, breathing a bit easier and sats now 93-94%. call light in reach.
[2024-08-16] MEDS ORDERED: Sodium Chloride 1 GM TAB PO SCH (14:00)
[2024-08-16 15:20] VITALS: BP 131/67
--- NOTE | 2024-08-16 19:14 | NUR ---
pt had an uneventful day, did ambulate out in [place] with PT, and took a shower today. daughters have been with him through out this shift. no acute changes this shift. call light in reach.
[2024-08-16 19:44] VITALS: BP 141/74
--- NOTE | 2024-08-17 03:14 | NUR ---
MECHANICAL ASSEMBLER SUMMARY VSS. REMAINS IN DROPLET ISOLATION FOR COVID. PAXLOVID AND ANTIBIOTICS ADMINISTERED - SEE MAR FOR DETAILS. FAMILY WAS IN AT SHIFT START TO VISIT AND GIVE COMFORT. PT ALERT TO QUESTIONS ASKED. SLOW TO REPSOND. HOB ELEVATED AND ON O2 AT 2L/MIN PER NC. SATS IN THE 90'S. HAS BEEN RESTING QUIETLY AT INTERVALS. NO C/O PAIN OR DISCOMFORT. RAILS UP X 2, CALL LIGHT IN REACH AND BED IN LOW POSITION FOR SAFETY. ABLE TO REPOSITION WITH ASSSIST. WILL CONT TO MONITOR.
[2024-08-17 03:31] VITALS: BP 156/77
[2024-08-17 05:17] LABS: BASOPHILS PERCENT AUTO 0 % (0-2); EOSINOPHILS PERCENT AUTO 0 % (0-6); Hematocrit 26.7 % (37.0-53.0); Hemoglobin 8.9 g/dL (13.5-17.5); IMMATURE GRAN ABSOLUTE AUTO 0.02 K/mm3 (0.00-0.10); IMMATURE GRAN PERCENT AUTO 1 % (0-1); LYMPHOCYTES ABSOLUTE AUTO 0.36 K/mm3 (0.84-5.20); LYMPHOCYTES PERCENT AUTO 9 % (21-46); MONOCYTES ABSOLUTE AUTO 0.34 K/mm3 (0.16-1.47); MONOCYTES PERCENT AUTO 9 % (4-13); Mean Corpuscular HGB 29.4 pg (26.0-34.0); Mean Corpuscular HGB Conc 33.3 g/dL (31.5-36.5); Mean Corpuscular Volume 88 fL (80-100); Mean Platelet Volume 9.7 fL (9.1-12.4); NEUTROPHILS ABSOLUTE AUTO 3.19 K/mm3 (1.96-9.15); NEUTROPHILS PERCENT AUTO 82 % (41-73); Platelet Count 251 K/mm3 (150-400); RDW Coefficient Variation 13.2 % (11.7-14.2); RDW Standard Deviation 42.7 fL (35.1-46.3); Red Blood Cell Count 3.03 M/mm3 (4.30-5.90); White Blood Cell Count 3.91 K/mm3 (4.00-11.30)
[2024-08-17 05:36] LABS: Bun/Creatinine Ratio 27.2 (12.0-20.0); Calcium, Blood 8.1 mg/dL (8.5-10.1); Creatinine, Blood 1.03 mg/dL (0.60-1.20); Potassium, Blood 4.1 mmol/L (3.5-5.5)
[2024-08-17 08:03] VITALS: BP 134/63
[2024-08-17] MEDS ORDERED: Arginine/Glutamine/Calcium Hmb 1 Packet PO SCH (09:00)
[2024-08-17] MEDS ORDERED: Sodium Chloride 1 GM TAB PO SCH (14:00)
--- NOTE | 2024-08-17 16:35 | NUR ---
SHIFT SUMMARY PT IS A/OX3-4, SLOW TO RESPOND. UP WITH SBA AND FWW TO BATHROOM. PT ON RA, SATS MAINTAINING >92% USING CONT PULSE OX. CONTINUING ANTIBIOTIC THERAPY. DAUGHTER AT BEDSIDE THROUGHOUT THIS AFTERNOON. PT CALLING APPROPRIATELY USING THE CALL LIGHT.
[2024-08-17 20:28] VITALS: BP 134/65
--- NOTE | 2024-08-18 03:09 | NUR ---
ON AWAKE COUNSELOR SUMMARY BRADYCARDIA, OTHERWISE VSS. APPEARING MORE ALERT TO QUESTIONS ASKED, AND MORE ACTIVE THAN NOTED 24 HR AGO. DAUGHTER AT BEDSIDE AT SHIFT START SAID HE WAS ENCOURAGED TO BE MORE FOCUSED ON DOING THINGS HIMSELF PER RT INSTRUCTIONS. RECEIVING IV ANTIBIOTICS AND PAXLOVID FOR COVID. TOELRATING MEDS WELL. UP TO BATHROOM WITH ASSIST. ON ROOM AIR UNTIL HS, THEN CPAP IN USE. HAS BEEN RESTING QUIETLY WITH FEW INTERRUPTIONS. ABLE TO REPOSITION SELF IN EBD FOR COMFORT. CALL LIGHT IN REACH, RAILS UP X 2 AND BED IN LOW POSITION FOR SAFETY. REMAINS ON DROPLEET PRECAUTIONS FOR COVID. WILL CONTINUE TO MONITOR
[2024-08-18 05:06] VITALS: BP 154/76
[2024-08-18 05:16] LABS: BASOPHILS PERCENT AUTO 0 % (0-2); EOSINOPHILS PERCENT AUTO 0 % (0-6); Hematocrit 27.4 % (37.0-53.0); Hemoglobin 8.9 g/dL (13.5-17.5); IMMATURE GRAN ABSOLUTE AUTO 0.05 K/mm3 (0.00-0.10); IMMATURE GRAN PERCENT AUTO 1 % (0-1); LYMPHOCYTES ABSOLUTE AUTO 0.53 K/mm3 (0.84-5.20); LYMPHOCYTES PERCENT AUTO 7 % (21-46); MONOCYTES ABSOLUTE AUTO 0.36 K/mm3 (0.16-1.47); MONOCYTES PERCENT AUTO 5 % (4-13); Mean Corpuscular HGB 28.9 pg (26.0-34.0); Mean Corpuscular HGB Conc 32.5 g/dL (31.5-36.5); Mean Corpuscular Volume 89 fL (80-100); Mean Platelet Volume 9.8 fL (9.1-12.4); NEUTROPHILS ABSOLUTE AUTO 6.25 K/mm3 (1.96-9.15); NEUTROPHILS PERCENT AUTO 87 % (41-73); Platelet Count 269 K/mm3 (150-400); RDW Coefficient Variation 13.1 % (11.7-14.2); RDW Standard Deviation 42.2 fL (35.1-46.3); Red Blood Cell Count 3.08 M/mm3 (4.30-5.90); White Blood Cell Count 7.19 K/mm3 (4.00-11.30)
[2024-08-18 05:46] LABS: Bun/Creatinine Ratio 38.3 (12.0-20.0); Calcium, Blood 8.7 mg/dL (8.5-10.1); Creatinine, Blood 0.94 mg/dL (0.60-1.20); Potassium, Blood 4.4 mmol/L (3.5-5.5)
[2024-08-18 07:40] VITALS: BP 157/78
[2024-08-18 16:41] VITALS: BP 149/77
--- NOTE | 2024-08-18 19:26 | NUR ---
SHIFT SUMMARY PT IS A/OX4, SLOW TO RESPOND AT TIMES. NO ACUTE CHANGES THROUGHOUT THIS SHIFT. PT AMBULATING IN THE ROOM WITH SBA AND FWW. ON RA, SATS MAINTAINING >92% ON CONT PULSE OX. DAUGHTERS AT BEDSIDE THROUGHOUT THIS AFTERNOON. PT CALLING APPROPRIATELY USING THE CALL LIGHT.
[2024-08-18 20:32] VITALS: BP 132/76
--- NOTE | 2024-08-19 03:45 | NUR ---
CLINICAL LAB SPECIALIST SUMMARY VSS. ALERT AND ORIENTED TO QUESTIONS ASKED. MORE ENTHUSIASTIC TO PERFORM OWN ACTIVITIES WITH LESS HELP. IV ANTIBIOTICS AND PO PAXLOVID ADMIN, TOLERATES MEDS WELL. HOB ELEVATED FOR RESP COMFORT. CONT PULSE OX - SATS 90'S. HAS BEEN RESTING QUIETLY WITH FEW INTERRUPTIONS. ABLE TO REPOSITION SELF IN BED WITHOUT ASSIST. RAILS UP X 2, CALL LIGHT IN REACH AND BED IN LOW POSITION FOR SAFETY. DROPLET PRECAUTIONS MAINTAINED FOR COVID. WILL CONTINUE TO MONITOR.
[2024-08-19 04:19] VITALS: BP 186/72
[2024-08-19 07:25] VITALS: BP 152/78
[2024-08-19] MEDS ORDERED: JUVEN PACKET1 EAC3 PO (11:45)
[2024-08-19] MEDS ORDERED: DECADRON6 M1 PO (11:46)
[2024-08-19] MEDS ORDERED: DOCU100 PO (11:46)
[2024-08-19] MEDS ORDERED: FURO20 PO (11:47)
[2024-08-19] MEDS ORDERED: VISBIOME 112.51 EACH PO (11:47)
[2024-08-19] MEDS ORDERED: POTA10T PO (11:48)
[2024-08-19] MEDS ORDERED: PAXLOVID 300-11 EAC1 (11:48)
[2024-08-19] MEDS ORDERED: SENNA LAXATIVE8.6 MG PO (11:49)
[2024-08-19] MEDS ORDERED: SODCHL1 PO (11:49)
--- NOTE | 2024-08-19 13:29 | NUR ---
DISCHARGE SUMMARY PT DC THIS SHIFT DC INSTRUCTION GONE OVER WITH PT AND PT DAUGHTER WHOM BOTH STATED UNDERSTANDING. PT WAS ESCORTED OUT TO PRIVATE VEHICLE VIA W/C BY THIS NURSE. PER MD PT WAS SENT HOME WITH DAMIEN.
== END 2024-08-19 13:22 | disposition home health service (06) | DRG 640 ==
LOC: ER 08:12 → ERHOLD 08:13 → MEDS 15:52
PROVIDERS: Emergency Medicine; Internal Medicine; ADMIT Internal Medicine
PROC: 5A09357 Assistance with Respiratory Ventilation, Less than 24 Consecutive Hours, Continuous Positive Airway Pressure (ICD-10-PCS; principal; 2024-08-15)
PROC: 8E0ZXY6 Isolation (ICD-10-PCS; 2024-08-15)
PROC: 3E0DX3Z Introduction of Anti-inflammatory into Mouth and Pharynx, External Approach (ICD-10-PCS; 2024-08-15)
DX: E87.1 Hypo-osmolality and hyponatremia (principal); U07.1 COVID-19; I48.20 Chronic atrial fibrillation, unspecified; E87.70 Fluid overload, unspecified; I73.9 Peripheral vascular disease, unspecified; R54 Age-related physical debility; G47.33 Obstructive sleep apnea (adult) (pediatric); G20.A1 Parkinson's disease without dyskinesia, without mention of fluctuations; I10 Essential (primary) hypertension; D63.8 Anemia in other chronic diseases classified elsewhere; S50.11XA Contusion of right forearm, initial encounter; W06.XXXA Fall from bed, initial encounter; R23.8 Other skin changes; D50.9 Iron deficiency anemia, unspecified; T50.2X5A Adverse effect of carbonic-anhydrase inhibitors, benzothiadiazides and other diuretics, initial encounter; Z91.041 Radiographic dye allergy status; Z86.73 Personal history of transient ischemic attack (TIA), and cerebral infarction without residual deficits; Z79.01 Long term (current) use of anticoagulants; Z87.891 Personal history of nicotine dependence
CPT/HCPCS: 0202U; 36415; 71046; 73600; 80048; 80053; 80061; 81001; 83605; 83880; 83930; 84443; 85025; 87040; 87086; 93005; 93010; 93922; 94762; 96365; 96366; 96367; 96375; 96376; 97116; 97161; 97165; 97530; 97535; 99285-25; A9270; G0378; J0692; J1650; J1940; J2916

== ENCOUNTER 2024-12-20 01:33 | Day surgery (SDC) | payer OTHER ==
[~2024-12-20 01:33] MED LIST changes: +CARBIDOPA-LEVO1 EA15 PO; +CARBLEV25 SL; +CEFD300 PO; +DECADRON6 M1 PO; +DOCU100 PO; +FURO20 PO; +JUVEN PACKET1 EAC3 PO; +PAXLOVID 300-11 EAC1; +POTA10T PO; +SENNA LAXATIVE8.6 MG PO; +SODCHL1 PO
[2024-12-20] MEDS ORDERED: Lidocaine HCl 4% Cream 5 GM ONE ×2 (07:33→08:36)
== END 2024-12-20 23:00 | disposition home or self-care (01) ==
LOC: WOUND 01:33
DX: S81.001D Unspecified open wound, right knee, subsequent encounter (principal); L97.822 Non-pressure chronic ulcer of other part of left lower leg with fat layer exposed; I87.2 Venous insufficiency (chronic) (peripheral); I73.9 Peripheral vascular disease, unspecified; G60.9 Hereditary and idiopathic neuropathy, unspecified; Z87.891 Personal history of nicotine dependence; Z91.041 Radiographic dye allergy status; Z91.09 Other allergy status, other than to drugs and biological substances
CPT/HCPCS: A6213; A9270; G0463

== ENCOUNTER → 2024-12-25 | Outpatient (CLI) | payer OTHER ==
[2024-12-25 15:48] LABS: Source, Urine Clean Catch
[2024-12-25 19:03] LABS: Bilirubin, Urine Neg (Neg); Color, Urine Yellow (P-Yellow); Glucose Qualitative, Urine Neg (Neg); Ketones, Urine 1+ (Neg); Leukocyte Esterase, Urine Neg (Neg); Protein, Urine 1+ (Neg); Specific Gravity, Urine 1.015 (1.003-1.022); Urobilinogen, Urine NORM (Normal)
[2024-12-25 19:10] LABS: BASOPHILS ABSOLUTE AUTO 0.03 K/mm3 (0.00-0.23); BASOPHILS PERCENT AUTO 1 % (0-2); EOSINOPHILS ABSOLUTE AUTO 0.08 K/mm3 (0.00-0.68); EOSINOPHILS PERCENT AUTO 1 % (0-6); Hematocrit 31.9 % (37.0-53.0); Hemoglobin 10.0 g/dL (13.5-17.5); IMMATURE GRAN ABSOLUTE AUTO 0.04 K/mm3 (0.00-0.10); IMMATURE GRAN PERCENT AUTO 1 % (0-1); LYMPHOCYTES ABSOLUTE AUTO 1.01 K/mm3 (0.84-5.20); LYMPHOCYTES PERCENT AUTO 16 % (21-46); MONOCYTES ABSOLUTE AUTO 0.68 K/mm3 (0.16-1.47); MONOCYTES PERCENT AUTO 11 % (4-13); Mean Corpuscular HGB Conc 31.3 g/dL (31.5-36.5); Mean Corpuscular Volume 91 fL (80-100); NEUTROPHILS ABSOLUTE AUTO 4.49 K/mm3 (1.96-9.15); NEUTROPHILS PERCENT AUTO 71 % (41-73); NRBC ABSOLUTE 0.00 K/mm3 (0.00-0.02); NRBC Auto 0.0 /100 WBC (0.0-0.2); Platelet Count 270 K/mm3 (150-400); RDW Coefficient Variation 13.6 % (11.7-14.2); RDW Standard Deviation 45.1 fL (35.1-46.3)
[2024-12-25 21:20] LABS: Alanine Aminotransfer (ALT/SGP 18.0 U/L (12-78); Albumin, Blood 3.7 g/dL (3.4-5.0); Albumin/Globulin Ratio 1.0 (0.8-1.8); Anion Gap 8.0 mmol/L (3-11); Aspartate Aminotrans (AST/SGOT 21.0 U/L (12-37); Bilirubin, Total 0.5 mg/dL (0.1-1.0); Blood Urea Nitrogen 20.0 mg/dL (8-24); CO2, Blood 26.0 mmol/L (21-32); Calcium, Blood 9.3 mg/dL (8.5-10.1); Chloride, Blood 104.0 mmol/L (98-108); Creatinine, Blood 0.81 mg/dL (0.60-1.20); Globulin, Blood 3.6 g/dL (2.2-4.0); Glucose, Blood 110.0 mg/dL (70-99); Potassium, Blood 4.0 mmol/L (3.5-5.5); Sodium, Blood 134.0 mmol/L (136-145); Thyroid Stimulating Hormone 4.46 uIU/mL (0.360-4.800); Total Protein, Blood 7.3 g/dL (6.4-8.2)
== END ==
LOC: LAB 15:38 → LAB SHORT 15:38
PROVIDERS: Student in an Organized Health Care Education/Training Program
DX: L97.911 Non-pressure chronic ulcer of unspecified part of right lower leg limited to breakdown of skin (principal); R26.89 Other abnormalities of gait and mobility; R53.1 Weakness; R60.0 Localized edema; W19.XXXD Unspecified fall, subsequent encounter
CPT/HCPCS: 80053; 83880; 84443; 85025

== ENCOUNTER 2024-12-27 05:53 | Day surgery (SDC) | payer OTHER ==
[2024-12-27] MEDS ORDERED: Lidocaine HCl 4% Cream 5 GM ONE (10:13)
== END 2024-12-27 23:00 | disposition home or self-care (01) ==
LOC: WOUND 05:53
DX: S81.001A Unspecified open wound, right knee, initial encounter (principal); L97.822 Non-pressure chronic ulcer of other part of left lower leg with fat layer exposed; I87.2 Venous insufficiency (chronic) (peripheral); I73.9 Peripheral vascular disease, unspecified; G60.9 Hereditary and idiopathic neuropathy, unspecified; W19.XXXA Unspecified fall, initial encounter
CPT/HCPCS: A6213; A9270

== ENCOUNTER 2025-01-03 03:10 | Day surgery (SDC) | payer OTHER | END 2025-01-03 23:00 | disposition home or self-care (01) | LOC: WOUND 03:10 | DX: L97.822 Non-pressure chronic ulcer of other part of left lower leg with fat layer exposed (principal); S81.001A Unspecified open wound, right knee, initial encounter; I87.2 Venous insufficiency (chronic) (peripheral); I73.9 Peripheral vascular disease, unspecified; G60.9 Hereditary and idiopathic neuropathy, unspecified; X58.XXXA Exposure to other specified factors, initial encounter | CPT/HCPCS: A6213 ==

== ENCOUNTER 2025-01-09 03:43 | Day surgery (SDC) | payer OTHER ==
[2025-01-09] MEDS ORDERED: Lidocaine HCl 4% Cream 5 GM ONE (11:18)
== END 2025-01-09 23:00 | disposition home or self-care (01) ==
LOC: WOUND 03:43
DX: S81.001A Unspecified open wound, right knee, initial encounter (principal); L97.822 Non-pressure chronic ulcer of other part of left lower leg with fat layer exposed; I87.2 Venous insufficiency (chronic) (peripheral); I73.9 Peripheral vascular disease, unspecified; G60.9 Hereditary and idiopathic neuropathy, unspecified
CPT/HCPCS: A6213; A9270

== ENCOUNTER 2025-01-16 01:49 | Day surgery (SDC) | payer OTHER ==
[2025-01-16] MEDS ORDERED: Lidocaine HCl 4% Cream 5 GM ONE (10:46)
== END 2025-01-16 23:00 | disposition home or self-care (01) ==
LOC: WOUND 01:49
DX: S81.001A Unspecified open wound, right knee, initial encounter (principal); L97.825 Non-pressure chronic ulcer of other part of left lower leg with muscle involvement without evidence of necrosis; I87.2 Venous insufficiency (chronic) (peripheral); I73.9 Peripheral vascular disease, unspecified; G60.9 Hereditary and idiopathic neuropathy, unspecified; W19.XXXA Unspecified fall, initial encounter
CPT/HCPCS: A6213; A9270

== ENCOUNTER 2025-01-31 01:08 | Day surgery (SDC) | payer OTHER ==
[2025-01-31] MEDS ORDERED: Lidocaine HCl 4% Cream 5 GM ONE (15:30)
== END 2025-01-31 23:00 | disposition home or self-care (01) ==
LOC: WOUND 01:08
DX: L97.822 Non-pressure chronic ulcer of other part of left lower leg with fat layer exposed (principal); I87.2 Venous insufficiency (chronic) (peripheral); I73.9 Peripheral vascular disease, unspecified; G60.9 Hereditary and idiopathic neuropathy, unspecified; G20.A1 Parkinson's disease without dyskinesia, without mention of fluctuations; I69.359 Hemiplegia and hemiparesis following cerebral infarction affecting unspecified side
CPT/HCPCS: A9270

== ENCOUNTER 2025-02-07 03:26 | Day surgery (SDC) | payer OTHER ==
[2025-02-07] MEDS ORDERED: Lidocaine HCl 4% Cream 5 GM ONE (13:36)
== END 2025-02-07 23:40 | disposition home or self-care (01) ==
LOC: WOUND 03:26
DX: L97.822 Non-pressure chronic ulcer of other part of left lower leg with fat layer exposed (principal); I87.2 Venous insufficiency (chronic) (peripheral); I73.9 Peripheral vascular disease, unspecified; G60.9 Hereditary and idiopathic neuropathy, unspecified; G20.A1 Parkinson's disease without dyskinesia, without mention of fluctuations
CPT/HCPCS: A9270

== ENCOUNTER 2025-02-14 03:35 | Day surgery (SDC) | payer OTHER ==
[2025-02-14] MEDS ORDERED: Lidocaine HCl 4% Cream 5 GM ONE (15:10)
== END 2025-02-14 23:00 | disposition home or self-care (01) ==
LOC: WOUND 03:35
DX: L97.822 Non-pressure chronic ulcer of other part of left lower leg with fat layer exposed (principal); I87.2 Venous insufficiency (chronic) (peripheral); I73.9 Peripheral vascular disease, unspecified; G60.9 Hereditary and idiopathic neuropathy, unspecified; G20.A1 Parkinson's disease without dyskinesia, without mention of fluctuations; I69.359 Hemiplegia and hemiparesis following cerebral infarction affecting unspecified side
CPT/HCPCS: A9270

== ENCOUNTER 2025-02-21 08:00 | Day surgery (SDC) | payer OTHER | END 2025-02-21 23:00 | disposition home or self-care (01) | LOC: WOUND 08:00 | DX: L97.822 Non-pressure chronic ulcer of other part of left lower leg with fat layer exposed (principal); I87.2 Venous insufficiency (chronic) (peripheral); I73.9 Peripheral vascular disease, unspecified; G60.9 Hereditary and idiopathic neuropathy, unspecified ==

== ENCOUNTER 2025-03-07 | Day surgery (SDC) | payer OTHER ==
[2025-03-07] MEDS ORDERED: Lidocaine HCl 4% Cream 5 GM ONE (15:28)
== END 2025-03-07 23:00 | disposition home or self-care (01) ==
LOC: WOUND
DX: L97.822 Non-pressure chronic ulcer of other part of left lower leg with fat layer exposed (principal); I87.2 Venous insufficiency (chronic) (peripheral); I73.9 Peripheral vascular disease, unspecified; G60.9 Hereditary and idiopathic neuropathy, unspecified
CPT/HCPCS: A9270; G0463

== ENCOUNTER 2025-03-14 10:44 | Day surgery (SDC) | payer OTHER ==
[2025-03-14] MEDS ORDERED: Lidocaine HCl 4% Cream 5 GM ONE (10:45)
== END 2025-03-14 23:00 | disposition home or self-care (01) ==
LOC: WOUND 10:44
DX: L97.822 Non-pressure chronic ulcer of other part of left lower leg with fat layer exposed (principal); I87.2 Venous insufficiency (chronic) (peripheral); I73.9 Peripheral vascular disease, unspecified; G60.9 Hereditary and idiopathic neuropathy, unspecified; G20.A1 Parkinson's disease without dyskinesia, without mention of fluctuations; I69.359 Hemiplegia and hemiparesis following cerebral infarction affecting unspecified side
CPT/HCPCS: A9270

== ENCOUNTER 2025-03-27 03:08 | Day surgery (SDC) | payer OTHER | END 2025-03-27 23:00 | disposition home or self-care (01) | LOC: WOUND 03:08 | DX: L97.822 Non-pressure chronic ulcer of other part of left lower leg with fat layer exposed (principal); I87.2 Venous insufficiency (chronic) (peripheral); I73.9 Peripheral vascular disease, unspecified; G60.9 Hereditary and idiopathic neuropathy, unspecified ==

== ENCOUNTER 2025-04-04 00:11 | Day surgery (SDC) | payer OTHER | END 2025-04-04 23:00 | disposition home or self-care (01) | LOC: WOUND 00:11 | DX: L97.821 Non-pressure chronic ulcer of other part of left lower leg limited to breakdown of skin (principal); I87.2 Venous insufficiency (chronic) (peripheral); I73.9 Peripheral vascular disease, unspecified; G60.9 Hereditary and idiopathic neuropathy, unspecified ==

== ENCOUNTER 2025-04-11 01:02 | Day surgery (SDC) | payer OTHER | END 2025-04-11 23:00 | disposition home or self-care (01) | LOC: WOUND 01:02 | DX: L97.821 Non-pressure chronic ulcer of other part of left lower leg limited to breakdown of skin (principal); I87.2 Venous insufficiency (chronic) (peripheral); I73.9 Peripheral vascular disease, unspecified; G60.9 Hereditary and idiopathic neuropathy, unspecified; G20.A1 Parkinson's disease without dyskinesia, without mention of fluctuations; I69.259 Hemiplegia and hemiparesis following other nontraumatic intracranial hemorrhage affecting unspecified side; Z87.828 Personal history of other (healed) physical injury and trauma | CPT/HCPCS: G0463 ==

== ENCOUNTER 2025-05-06 07:02 | Day surgery (SDC) | payer OTHER ==
[2025-05-06] MEDS ORDERED: Lidocaine HCl 4% Cream 5 GM ONE (09:15)
== END 2025-05-06 22:00 | disposition home or self-care (01) ==
LOC: WOUND 07:02
DX: L97.822 Non-pressure chronic ulcer of other part of left lower leg with fat layer exposed (principal); I73.9 Peripheral vascular disease, unspecified
CPT/HCPCS: A9270; G0463

== ENCOUNTER 2025-05-16 03:10 | Day surgery (SDC) | payer OTHER ==
[2025-05-16] MEDS ORDERED: Lidocaine HCl 4% Cream 5 GM ONE (12:18)
== END 2025-05-16 23:00 | disposition home or self-care (01) ==
LOC: WOUND 03:10
DX: L97.822 Non-pressure chronic ulcer of other part of left lower leg with fat layer exposed (principal); I87.2 Venous insufficiency (chronic) (peripheral); I73.9 Peripheral vascular disease, unspecified; G60.9 Hereditary and idiopathic neuropathy, unspecified; G20.A1 Parkinson's disease without dyskinesia, without mention of fluctuations; I69.359 Hemiplegia and hemiparesis following cerebral infarction affecting unspecified side; M79.89 Other specified soft tissue disorders; M21.862 Other specified acquired deformities of left lower leg
CPT/HCPCS: 73610; A9270